=== PATIENT | male | born 1935 | race Caucasian/White ===

== ENCOUNTER → 2017-02-24 | Outpatient (CLI) | payer OTHER ==
[~2017-02-24] MED LIST: ACETAMINOPHEN325 M1 PO; ALDACTONE25 MG PO; ALEVE220 M1 PO; AREDS EYE VITAMIN; ASA5UEC PO; ATORVASTATIN CA40 MG PO; CALCITRATE200 MG PO; CALCIUM 500 +1 EAC5 PO; CARVEDILOL6.25 MG PO; COREG6.25 MG PO; CRESTOR10 MG PO; CRESTOR5 MG; FISH OIL 1,0001 EAC5 PO; HYDROCHLOROTHIA25 M1 PO; INSPRA25 MG PO; IRON PO; KEFLEX250 MG PO; LISINOPRIL10 MG PO; MULTI VITAMIN1 EACH PO; OMEPRAZOLE20 M2 PO; OXYCODONE HCL 55 MG PO; PACERONE 200 M200 M1 PO; PRESERVISION T1 EACH PO; PRILOSEC40 MG PO; SAVAYSA60 MG PO; ULTRAM 50MG TAB50 MG PO; VITAMIN B125000 MCG PO; VITAMINC500 PO
== END ==
LOC: RAD 10:25
DX: I48.91 Unspecified atrial fibrillation (principal)

== ENCOUNTER 2017-10-06 11:47 | Inpatient (IN) | payer OTHER ==
[~2017-10-06] VITALS: Ht 177.8 cm; Wt 89.6 kg
--- NOTE | ~2017-10-06 | HC ---
[facility] [place] [address] CONSULTATION Name: SNEHAL ABDI Room #: 210-P [facility] IN M.R.#: [id number] Admission: 10/06/17 Attend Phys: Chio Snow Discharge: 10/09/17 Date of : 37 Report #: [id number] THIS REPORT FOR: //name// CC: Grady Mendiola DATE OF SERVICE: 10/07/2017 HISTORY OF PRESENT ILLNESS: An 82-year-old white male who was admitted with slurred speech, some decreased memory and decreased balance, trouble walking. He also had an elevated troponin. He was diagnosed with a non-ST elevation [place] with ischemic cardiomyopathy and coronary artery disease. He was seen by Neurology. Noted to have ataxia. MRI is unable to be performed. Carotid Dopplers are pending and there is consideration for a CTA depending upon how he does in therapies. We are seeing him in Rehabilitation Medicine consultation. PAST MEDICAL HISTORY: Includes history of an ICD implant, paroxysmal atrial fibrillation, colon cancer, prostate CA, hypertension. There is a report of a closed head injury in the past. MEDICATIONS: Please see the full medication listing. FAMILY HISTORY: Noncontributory. ALLERGIES: None. SOCIAL HISTORY: Lives in a house, one and half story with his . She is disabled and she herself utilizes either a crutch or a powered wheelchair. They do have a van with a lift for her and he is on nasal prong O2 as well. As far as the patient goes. He typically would just utilize a cane, although the last week or so, he has had more and more gait and balance problems even with the cane. REVIEW OF SYSTEMS: Did not offer any current complaints of chest pain, shortness of breath, abdominal discomfort. Has concerns regarding his gait and functional mobility and ADLs. He thinks his speech is overall better. No focal pain complaints were noted. PHYSICAL EXAMINATION: GENERAL: An 82-year-old bearded white male in no obvious distress. VITAL SIGNS: Last recorded temperature 98.2, pulse 60, respirations 17, blood pressure 118/55. NEUROLOGIC: He is alert, pleasant, oriented, appears to verbalize reasonably well. Defer some answers to his , but can describe his house in detail. EOMs appeared to be full. There is no obvious slurring. Facies were symmetric. He has functional range of motion of both upper and lower extremity. Strength is grade 4+ to 4/5 both upper extremities 4+ to 4/5 both [place] [address] CONSULTATION Name: SNEHAL ABDI Room #: [facility] IN [facility].#: [id number] Admission: 10/06/17 Attend Phys: Chio Snow Discharge: 10/09/17 Date of : 36 Report #: [id number] does appear to have some problems with mlfi-tu-luhi bilaterally. ASSESSMENT: An 82-year-old white male with the following problem list: 1. Gait instability with noted ataxia. Neurology is involved with workup underway. Carotid Doppler pending. Consideration for CTA. Unable to undergo MRI. 2. Functional mobility and ADL deficits. 3. Slurred speech. Appears improved. 4. Elevated troponin with non-ST elevation myocardial infarction. 5. History of ischemic cardiomyopathy. 6. Coronary artery disease. 7. Paroxysmal atrial fibrillation. 8. Implanted cardiac defibrillator. 9. History of colon cancer. 10. Prostate cancer. PLAN: Neuro workup is underway. Therapy evaluations are also underway. We will be glad to follow along with you regarding his rehab therapy needs as he further medically stabilizes. Thank you for asking us to assist in this patient's care. <ELECTRONICALLY SIGNED> By: Angel Serra MD 10/17/17 1408 1207 02 Angel Serra MD /PMT
--- NOTE | ~2017-10-06 | EKG ---
[place] [address] [facility] [place] [address] ELECTROCARDIOGRAM REPORT Name: MARIAELENA ABDIY Chio Room #: 350-P ADM IN M.R.#: [id number] Admission: 10/06/17 Attend Phys: Chio Snow Discharge: Date of : 36 Report #: [id number] THIS REPORT FOR: //name// [facility] ED Test Date: 2017-10-06 Test Time: 12:37:04 Pat Name: SNEHAL ABDI Department: Room: 350 Gender: M Brush Stainer: FRANKO : 1935 Requested By: Jet Wilson Order Number: [id number] MD: Bryce Clemente Measurements Intervals Dodson Rate: 61 P: -3 MS: 260 QRS: -47 QRSD: 177 T: 130 QT: 463 QTc: 467 Interpretive Statements Atrial-sensed ventricular-paced rhythm No further analysis attempted due to paced rhythm Compared to ECG 05/23/2013 06:39:19 Ventricular pacing is now present Electronically Signed On 10-07-2017 7:36:38 CDT by Bryce Clemente [email or web address] <ELECTRONICALLY SIGNED> By: Bryce Clemente MD, [facility] 10/07/17 0736 1237 1237 Bryce Clemente MD, [facility] /EPI
--- NOTE | ~2017-10-06 | CATHLAB ---
[facility] [place] [address] INVASIVE PROCEDURE REPORT Name: SNEHAL ABDI Room #: 210-P [facility] IN [facility]#: [id number] Admission: 10/06/17 Attend Phys: Grady Waller Discharge: Date of : 36 Date of Service: 10/08/17 1148 Report #: [id number] THIS REPORT FOR: //name// APPROVED REPORT Study performed: 10/08/2017 07:37:09 Patient Details Patient Status: In-Patient Room #: The patient is a 82 year-old male Event Personnel Mat Morales Elastic Cutter, Jonatan Rosenbaum RN, Angel Viera Monitor Procedures Performed Left Heart Cath Coronaries, Bypass Grafts [id number] LHCCORCABG PTCA Single Vessel OM [id number] PCISINGLE Indication Non-STEMI , Dyspnea, Atypical chest pain Risk Factors Cerebrovascular Disease, Hypercholesterolemia, Coronary Artery DiseaseHypertension Previous Procedures/Diagnoses Previous CABG Procedure Narrative The Right Groin^ was infiltrated with 1% Lidocaine subcutaneous anesthesia. A PINNACLE 6FR Sheath #[id number] sheath was inserted into the RFA^. Coronary angiography was performed using coronary diagnostic catheters. The right coronary system was accessed and visualized with a JR4 catheter. The left coronary system was accessed and visualized with a JL5 catheter. The left ventricle was accessed and visualized with a PIGTAIL catheter. Left ventricular/Aortic Valve gradient assessed . The patient tolerated the procedure well and there were no complications associated with the procedure. Intraoperative Conscious Sedation Sedation start time: 8.17 Case end Time: 9.27 Fentanyl 25 mcg Versed 1.5 mg [facility] [address] [place] [address] INVASIVE PROCEDURE REPORT Name: TRINIDADSNEHAL M Room #: 210-P [facility] IN [facility]#: [id number] Admission: 10/06/17 Attend Phys: Grady Waller Discharge: Date of : 36 Date of Service: 10/08/17 1148 Report #: [id number] Fluoro Time: 30.31 minutes Dose: 4401 mGy Contrast Type and Amount: Omnipaque 230 ml Coronary Angiography The patient's coronary anatomy is right dominant. [place] Artery Percent Stenosis Left Main: 40 % Prox LAD: 100 % Mid/Distal LAD: % Circumflex: % RCA: 100 % Ramus: % Diagnostic Cath LAD There is a patent REDDY graft with an end-to-side anastomosis to the mid LAD. The septal perforators supply collateral filling of the PDA. Diagonal 1 Occluded at the ostium, partially filled via collateral circulation. Circumflex Patent vessel, supplies 2 obtuse marginal arteries- OM1 is larger of the two. The saphenous vein graft to OM1 is totally occluded at the proximal segment. OM1 There is a severe stenosis in the proximal segment, at least 90% with calcifications, at the bifurcation of 2 branches. OM2 Small-caliber vessel, with no flow-limiting lesions. Right Coronary The saphenous vein graft to the PDA is totally occluded. R PDA Filled via collateral circulation from septal perforators. Left Ventriculography Left Ventriculography was not performed. Ejection Fraction was 30-35% based off patient's Echocardiogram. An LVEDP was measured and there is no gradient across the outflow tract. Hemodynamics The aortic pressure is 112/55 mmHg with a mean of 75 mmHg. The left ventricular pressure is 127/15 mmHg with a mean of mmHg. The left ventricular end diastolic pressure is 18 mmHg. PCI Technique Lesion Anticoagulation was achieved with Angiomax. Patient was preloaded with Plavix. Percutaneous coronary intervention was performed on the first obtuse marginal branch segment. The lesion stenosis prior to intervention was 95% with LAKEISHA 3 flow. A LAUNCHER 6FR EBU 4 #[id number] Guide Catheter was used to engage the LCA ostium. A Luge Wire .014 x 182CM #[id number] Interventional Guidewire was used to cross the [facility] [address] [place] [address] INVASIVE PROCEDURE REPORT Name: SNEHAL ABDI Room #: 210-P [facility] IN M.R.#: [id number] Admission: 10/06/17 Attend Phys: Grady Waller Discharge: Date of : 36 Date of Service: 10/08/17 1148 Report #: [id number] lesion. BALLOON DILATION A Balloon catheter Sprinter OTW 2.0 x 10 #[id number] was inserted and inflated up to 14.00atm for 29seconds. The OM1 artery is a tortuous vessel with calcifications. At the site of the stenosis, I was able to pass 2 wires for support. A 2.0 mm and 1.5 mm balloon was partially passed into the stenotic area and inflated up to 14 rui. The lesion was not able to be dilated, probably from the calcification. The patient remained hemodynamically stable with no symptoms of chest pain. Final injections revealed LAKEISHA-3 blood flow. Final angiography reveals 90 % stenosis with LAKEISHA 3 flow. Conclusion 1. Patent REDDY graft to the LAD. 2. Occluded SVG to OM1. 3. Occluded SVG to PDA. 4. Collateral filling of the PDA from septal perforators. 5. Failed angioplasty of the proximal stenosis in OM1, due to inability to dilate the lesion with a balloon due to calcifications. 6. Recommend medical therapy. <ELECTRONICALLY SIGNED> By: Mat Morales MD 10/08/17 1148 1148 1148 Mat Morales MD /INF
--- NOTE | ~2017-10-06 | 2DMMODE ---
[facility] [address] [place] [address] 2 D/M-MODE ECHOCARDIOGRAM Name: SNEHAL ABDI Room #: 350-P ADM IN .R.#: [id number] Admission: 10/06/17 Attend Phys: Grady Waller Discharge: Date of : 37 Date of Service: 10/07/17 0956 Report #: [id number] THIS REPORT FOR: //name// APPROVED REPORT Study performed: 10/07/2017 09:05:19 EXAM: Comprehensive 2D, Doppler, and color-flow Echocardiogram Patient Location: Echo lab Room #: 350 Status: routine BSA: 2.09 HR: 60 bpm BP: 120/69 mmHg Rhythm: Paced, irregular Other Information Study Quality: Adequate Indications NSTEMI, ICM, ICD. HX: CABG 2D Dimensions RVDd: 45.19 mm LVEF(%): 35.65 (>50%) IVSd: 14.87 (7-11mm) LVOT Diam: 24.06 (18-24mm) LVDd: 53.99 mm PWd: 10.39 (7-11mm) Ascending Ao: 42.84 (22-36mm) LVDs: 44.68 (25-40mm) Aortic Root: 42.66 mm Magdaleno's LVEF: 35.65 % Volumes Left Atrial Volume (Systole) Single Plane 4CH: 81.61 mL Single Plane 2CH: 93.80 mL LA ESV Index: 45.00 mL/m2 Aortic Valve AoV Peak Scotty.: 1.27 m/s AO Peak Gr.: 6.46 mmHg LVOT Max P.24 mmHg LVOT Max V: 0.75 m/s MICHELLE Vmax: 2.67 cm2 Mitral Valve E/A Ratio: 0.9 MV Decel. Time: 217.25 ms [facility] [place] [address] 2 D/M-MODE ECHOCARDIOGRAM Name: SNEHAL ABDI Room #: 350-P [facility] IN M.R.#: [id number] Admission: 10/06/17 Attend Phys: Grady Waller Discharge: Date of : 36 Date of Service: 10/07/17 0956 Report #: [id number] MV E Max Scotty.: 0.51 m/s MV A Scotty.: 0.57 m/s MV PHT: 63.00 ms Pulmonary Valve PV Peak Scotty.: 0.95 m/s PV Peak Gr.: 3.62 mmHg Tricuspid Valve TR Peak Scotty.: 2.71 m/s TR Peak Gr.: 29.42 mmHg Left Ventricle The left ventricle is normal size. Moderate basal septal hypertrophy is present. Left ventricular systolic function is moderately decreased. LVEF is 35%. Mild diastolic dysfunction is present (impaired relaxation pattern). Right Ventricle Right ventricle is at the upper limits of normal. The right ventricular systolic function is normal. Device lead is present in the right ventricle. Atria Left atrium is moderately dilated. Right atrium is at the upper limits of normal. Aortic Valve The Aortic valve is sclerotic. Mild aortic regurgitation. There is no aortic valvular stenosis. Mitral Valve Mitral valve leaflets are mildly thickened. Moderate mitral regurgitation. Tricuspid Valve The tricuspid valve is normal in structure. Mild to moderate tricuspid regurgitation. Estimated PAP is 30mmHg plus the right atrial pressure. Pulmonic Valve The pulmonary valve is normal in structure. Mild to moderate pulmonic regurgitation. Great Vessels Aortic root is dilated at 4.3cm. Ascending aorta is dilated at 4.3cm. IVC is not well visualized. [facility] [address] [place] [address] 2 D/M-MODE ECHOCARDIOGRAM Name: SNEHAL ABDI Room #: 350-P [facility] IN ..#: [id number] Admission: 10/06/17 Attend Phys: Grady Waller Discharge: Date of : 37 Date of Service: 10/07/17 0956 Report #: [id number] Pericardium There is no pericardial effusion. <Conclusion> The left ventricle is normal size. Left ventricular systolic function is moderately decreased. LVEF is 35%. Mild diastolic dysfunction is present (impaired relaxation pattern). Left atrium is moderately dilated. Mild aortic regurgitation. Moderate mitral regurgitation. Mild to moderate tricuspid regurgitation. Estimated PAP is 30mmHg plus the right atrial pressure. <ELECTRONICALLY SIGNED> By: Mat Morales MD 10/07/1756 5 5 Mat Morales MD /INF
--- NOTE | ~2017-10-06 | D ---
[facility] [place] [address] [place] [address] DISCHARGE SUMMARY Name: SNEHAL ABDI Room #: 210-P DIS IN M.R.#: [id number] Admission: 10/06/17 Attend Phys: Chio Snow Discharge: 10/09/17 Date of : 36 Report #: [id number] THIS REPORT FOR: //name// CC: Grady Mendiola DATE OF SERVICE: 10/09/2017 FINAL DIAGNOSES: 1. Non-ST elevation myocardial infarction. 2. Coronary artery disease. HOSPITAL COURSE: The patient was admitted from home with weakness and slurred speech. He was diagnosed with NSTEMI based on lab and EKG data. CT of the head was unremarkable. He was not a candidate for MRI due to pacemaker implant. Neurology Service followed him and felt his underlying cerebrovascular disease was exacerbated by the acute medical process. He underwent cardiac catheterization, but no lesions were amenable to invasive treatment. Please see Dr. Morales's separately dictated report. The plan was for medical management. With supportive measures and therapy, his strength and balance improved. He was walking 250 feet, which is contact guard assistance. He was independent with transfers. His speech cleared as well. DISPOSITION: To be discharged to home with home health. Diet and activity as tolerated. Follow up with Dr. Mendiola and Dr. Morales in 1-2 weeks. Resume all home medications. <ELECTRONICALLY SIGNED> By: Angel Hummel MD 10/10/17 0851 0912 0942 Angel Hummel MD /leonora
--- NOTE | ~2017-10-06 | HC ---
[facility] [place] [address] CONSULTATION Name: SNEHLA ABDI Room #: 210-P [facility] IN M.R.#: [id number] Admission: 10/06/17 Attend Phys: Chio Snow Discharge: 10/09/17 Date of : 36 Report #: [id number] THIS REPORT FOR: //name// CC: Grady Mendiola DATE OF SERVICE: 10/06/2017 HISTORY OF PRESENT ILLNESS: This is an 82-year-old male patient who was evaluated because he indicates he was having some ambulation difficulty. This started 2-3 days ago. It started spontaneously without any trauma. He does not appear to be that much weak, but he has difficulty with ambulation and he believes a lot of it is because of incoordination. REVIEW OF SYSTEMS: Indicates that he recently had a carpal tunnel syndrome surgery on the left side. He was on Eliquis, but Eliquis was held. He is not completely sure for how long it was held. He does have a pacemaker. He does not know if it is compatible with MRI or not. He does have a history of ischemic cardiomyopathy and he is being seen by Cardiology in that regard. He does indicate he had a stroke in the past. He indicated it mostly affected the left lower extremity, that was in late , but he has been able to function reasonably well since then. He denies any new eye, ENT, respiratory, GI, , musculoskeletal, constitutional, dermatological, hematological, psychiatric, throat, allergic, endocrine symptom associated with present symptomatologies, which are new. PAST MEDICAL HISTORY: Positive for stroke. FAMILY HISTORY: Negative for early age stroke. SOCIAL HISTORY: The patient apparently has a supportive family. He does not drink any alcohol or smoke. PHYSICAL EXAMINATION: Indicates the patient is alert, responsive, able to follow simple and complex command. His speech, concentration, fund of knowledge and memory is at his baseline. Cranial nerve examination 2-12 looks mostly unremarkable. The patient has reasonably good strength in all 4 extremities. His reflexes, sensation and tone is symmetrical. He can do reasonably well with heqhkf-ad-bfgf, but I did not make him walk. I could not have a very good look at the patient's fundus. He is a very well-built individual who does not have any dysmorphic features of eyes, ears and face. His vision and hearing looks adequate. His pulses are palpable. He has no edema, cyanosis or jaundice. Heart looks irregular, but the patient has a history of atrial fibrillation. Blood pressure is 123/69, respirations 18, pulse is 60, temperature is 97.8. [address] [address] CONSULTATION Name: SNEHAL ABDI Room #: [address] [place] [address] IN M.R.#: [id number] Admission: 10/06/17 Attend Phys: Chio Snow Discharge: 10/09/17 Date of : 36 Report #: [id number] LABORATORY DATA: Indicates a hemoglobin of 11.1 and sodium of 137. His troponin is elevated and he is being followed by cardiology in that regard. He did have a CT scan of the head done, which does not appear to be showing any acute abnormality. He does have a history of prior encephalomalacia. All those changes are chronic. IMPRESSION: 1. Ambulation difficulty in a patient who had previous insults to the brain. It is possible that insult got aggravated with some systemic conditions including myocardial infarction. We need to just evaluate him. Evaluation is going to be difficult. He has a pacemaker, so we cannot do an MRI. He already had a CT scan and I think we should start with a carotid Doppler. Depending upon that, we may need further workup. He is on anticoagulation from a cardiology perspective and therefore, it is unlikely things will change much . RECOMMENDATIONS: 1. Carotid Doppler. 2. Get him evaluated by physical therapy. 3. Depending upon the carotid Doppler, we may consider a spine workup or even CT angiogram. I discussed all of it with the patient in detail and he wants to follow this plan and we will do that. Thank you very much for this referral. <ELECTRONICALLY SIGNED> By: Grant Munson MD 10/09/17 1355 1750 56 Grant Munson MD /nt
--- NOTE | ~2017-10-06 | H ---
[facility] [place] [address] HISTORY AND PHYSICAL Name: SNEHAL ABDI Room #: 350-P ADM IN M.R.#: [id number] Admission: 10/06/17 Attend Phys: Chio Snow Discharge: Date of : 36 Report #: [id number] THIS REPORT FOR: //name// CC: Grady Mendiola DATE OF SERVICE: 10/06/2017 CHIEF COMPLAINT: Trouble walking and speaking. HISTORY OF PRESENT ILLNESS: The patient is an 82-year-old gentleman who came to the Emergency Room with about a 3-day history of slurred speech and difficulty walking. He had put off coming to seek medical attention for a number of days, but his insisted because he was not getting better. He normally walks with a cane, but felt that his balance has been off, more so over the last 3 days. His said he has had difficulty remembering things for the last 3 days. Prior to these symptoms, he had carpal tunnel surgery on the left wrist 4 days ago and was taken off his aspirin for 5 days and Eliquis for 3 days prior to surgery. He does have a history of atrial fibrillation. PAST MEDICAL HISTORY: Coronary artery disease with bypass; colon cancer, surgically treated; atrial fibrillation; hypertension. PAST SURGICAL HISTORY: He has had a pacemaker implant. There is report of a closed head injury in the past. FAMILY HISTORY: Noncontributory. SOCIAL HISTORY: , lives with his . No chronic alcohol or tobacco use. ALLERGIES: None. MEDICATIONS: Omeprazole, aspirin, lisinopril, calcium, Coreg, Aldactone, Lipitor, multivitamin, vitamin C. REVIEW OF SYSTEMS: He denies headache, chest pain, shortness of breath, abdominal pain, nausea, vomiting, diarrhea, constipation, dysuria, syncope. OBJECTIVE: VITAL SIGNS: Temperature 36.4, pulse 50, respirations 16, blood pressure 120/69. GENERAL: He is awake and alert, in no distress. HEAD AND NECK: Unremarkable. LUNGS: Clear. HEART: Regular. ABDOMEN: Soft, normoactive bowel sounds. [facility] [address] [place] [address] HISTORY AND PHYSICAL Name: SNEHAL ABDI Room #: 350-P [facility] IN ..#: [id number] Admission: 10/06/17 Attend Phys: Chio Snow Discharge: Date of : 36 Report #: [id number] EXTREMITIES: No edema. NEUROLOGIC: His speech is clear. He has facial symmetry, seems to recognize me from the office, says his balance is still poor. Global strength seems intact and equal bilaterally. LABORATORY REVIEW: The pertinent findings include elevated troponin. ASSESSMENT: 1. Non-ST segment elevation myocardial infarction. 2. Ischemic cardiomyopathy. 3. Coronary artery disease. 4. Ataxia. 5. Dysarthria. 6. Hypertension. 7. Cerebrovascular disease. 8. Recent carpal tunnel surgery on the left. PLAN: Symptoms may just be related to the acute myocardial infarction. Initial CT of the brain was unremarkable, will be difficult to image further due to his pacemaker implant. Both Cardiology and Neurology were on the case. Therapies have been ordered as well as may just be medical management at this point. <ELECTRONICALLY SIGNED> By: Angel Hummel MD 10/07/17 1213 1032 1048 Angel Hummel MD /nt
[2017-10-06 12:24] VITALS: BP 126/94
[2017-10-06 12:50] LABS: HEMATOCRIT 31.6 % (42.0-52.0); HEMOGLOBIN 11.1 gm/dL (14.0-18.0); MCH 34.9 pg (26.0-34.0); MCHC 35.2 g/dL (28.0-37.0); MCV 99.2 fL (80.0-100.0); PLATELET COUNT 123 thou/uL (150-400); RBC 3.18 mil/uL (4.50-6.00); WBC 3.3 thou/uL (4.0-11.0)
[2017-10-06 13:00] LABS: URINE BILIRUBIN NEGATIVE (Negative); URINE BLOOD NEGATIVE (Negative); URINE CLARITY CLEAR; URINE COLOR YELLOW; URINE GLUCOSE-RANDOM* NEGATIVE (Negative); URINE KETONES NEGATIVE (Negative); URINE LEUKOCYTES-REFLEX NEGATIVE (Negative); URINE NITRITE-REFLEX NEGATIVE (Negative); URINE PROTEIN (DIPSTICK) NEGATIVE (Negative); URINE UROBILINOGEN 0.2 E.U./dl (0.2-1.0)
[2017-10-06 13:00] LABS: CALCIUM 9.1 mg/dL (8.5-10.1)
[2017-10-06] MEDS ORDERED: VITAMINC500 PO (13:02)
[2017-10-06] MEDS ORDERED: UNICOMPLEX M TA1 TA1 PO (13:02)
[2017-10-06 13:06] LABS: APTT 26.4 Seconds (24.5-32.8); INR 1.1; PROTIME 11.3 Seconds (9.3-11.4)
[2017-10-06 13:08] LABS: AMP/METHAMP Negative (Negative); BARBITURATES Negative (Negative); BENZODIAZEPINES Negative (Negative); COCAINE Negative (Negative); METHADONE Negative (Negative); OPIATES Negative (Negative); PCP Negative (Negative)
[2017-10-06 13:09] LABS: ALBUMIN 3.4 g/dL (3.4-5.0); MAGNESIUM 1.7 mg/dL (1.8-2.4); TOTAL BILIRUBIN 1.4 mg/dL (<0.1-1.0); TOTAL PROTEIN 6.3 g/dL (6.4-8.2)
[2017-10-06 13:11] LABS: ABSOLUTE NEUTROPHILS 1.5 thou/uL (1.4-8.2); ANISOCYTOSIS 1+; LARGE PLATELETS FEW; PLATELET ESTIMATE NORMAL
[2017-10-06 13:13] LABS: TROPONIN-I 3.39 ng/mL (<0.06)
[2017-10-06 14:29] VITALS: BP 116/59
[2017-10-06 16:29] VITALS: BP 123/69
[2017-10-06 19:35] VITALS: BP 107/62
[2017-10-06 23:30] VITALS: BP 116/65
[2017-10-07 03:15] VITALS: BP 100/57
[2017-10-07 06:16] LABS: CALCIUM 9.1 mg/dL (8.5-10.1); CREATININE 0.9 mg/dL (0.7-1.3); POTASSIUM 4.7 mmol/L (3.5-5.1)
[2017-10-07 06:43] LABS: TROPONIN-I 2.79 ng/mL (<0.06)
[2017-10-07 07:35] VITALS: BP 120/69
[2017-10-07 10:45] VITALS: BP 118/55
[2017-10-07 16:48] VITALS: BP 111/57
[2017-10-07 19:25] VITALS: BP 118/63
[2017-10-08 04:00] VITALS: BP 108/51
[2017-10-08 06:54] LABS: HEMATOCRIT 28.9 % (42.0-52.0); HEMOGLOBIN 10.3 gm/dL (14.0-18.0); MCHC 35.6 g/dL (28.0-37.0); MCV 98.1 fL (80.0-100.0); RBC 2.94 mil/uL (4.50-6.00); RDW 18.1 % (10.5-14.5); WBC 3.6 thou/uL (4.0-11.0)
[2017-10-08 07:24] LABS: CALCIUM 8.6 mg/dL (8.5-10.1); POTASSIUM 4.4 mmol/L (3.5-5.1)
[2017-10-08 07:49] VITALS: BP 131/72
[2017-10-08 15:10] VITALS: BP 121/59
[2017-10-08 19:45] VITALS: BP 111/61
[2017-10-09 03:38] LABS: CALCIUM 8.3 mg/dL (8.5-10.1); CREATININE 0.9 mg/dL (0.7-1.3); POTASSIUM 4.2 mmol/L (3.5-5.1)
[2017-10-09 03:39] LABS: HEMOGLOBIN 9.8 gm/dL (14.0-18.0); MCH 34.7 pg (26.0-34.0); MCHC 35.2 g/dL (28.0-37.0); MCV 98.6 fL (80.0-100.0); RBC 2.84 mil/uL (4.50-6.00); RDW 17.9 % (10.5-14.5); WBC 3.8 thou/uL (4.0-11.0)
[2017-10-09 04:17] VITALS: BP 103/53
[2017-10-09 07:35] VITALS: BP 112/63
[2017-10-09] MEDS ORDERED: ELIQUIS5 MG PO (09:07)
[2017-10-09 10:25] VITALS: BP 112/63
[2017-10-09 10:46] VITALS: BP 112/63
[2017-10-09 10:51] VITALS: BP 112/63
== END 2017-10-09 12:30 | disposition home health service (06) | DRG 250 ==
LOC: ER 11:47 → 3W 13:58 → EROBS 13:58 → 3W 14:40 → 2N 10-08 10:29 → ENTRNSPT 10-09 11:57 → EDTRNSPTSTS 10-09 12:00 → 2N 10-09 12:30
PROVIDERS: Emergency Medicine; Internal Medicine Cardiovascular Disease; Internal Medicine Geriatric Medicine
PROC: B2131ZZ Fluoroscopy of Multiple Coronary Artery Bypass Grafts using Low Osmolar Contrast (ICD-10-PCS; principal; 2017-10-08)
PROC: B2111ZZ Fluoroscopy of Multiple Coronary Arteries using Low Osmolar Contrast (ICD-10-PCS; principal; 2017-10-08)
PROC: 02703ZZ Dilation of Coronary Artery, One Artery, Percutaneous Approach (ICD-10-PCS; principal; 2017-10-08)
PROC: 4A023N7 Measurement of Cardiac Sampling and Pressure, Left Heart, Percutaneous Approach (ICD-10-PCS; principal; 2017-10-08)
DX: I21.4 Non-ST elevation (NSTEMI) myocardial infarction (principal); I50.21 Acute systolic (congestive) heart failure; D61.818 Other pancytopenia; I44.2 Atrioventricular block, complete; I48.0 Paroxysmal atrial fibrillation; I25.5 Ischemic cardiomyopathy; I25.10 Atherosclerotic heart disease of native coronary artery without angina pectoris; R27.0 Ataxia, unspecified; E78.5 Hyperlipidemia, unspecified; Z90.49 Acquired absence of other specified parts of digestive tract; Z86.73 Personal history of transient ischemic attack (TIA), and cerebral infarction without residual deficits; Z85.038 Personal history of other malignant neoplasm of large intestine; Z95.0 Presence of cardiac pacemaker; Z85.46 Personal history of malignant neoplasm of prostate; Z95.1 Presence of aortocoronary bypass graft; Z79.82 Long term (current) use of aspirin; Z79.899 Other long term (current) drug therapy; I11.0 Hypertensive heart disease with heart failure
CPT/HCPCS: 10081; 10779

== ENCOUNTER 2018-07-06 20:32 | Inpatient (IN) | payer OTHER ==
[~2018-07-06] VITALS: Ht 177.8 cm; Wt 81.3 kg
--- NOTE | ~2018-07-06 | H ---
[facility] [place] [address] HISTORY AND PHYSICAL Name: SNEHAL BADI Room #: 358-P ADM IN M.R.#: [id number] Admission: 07/06/18 Attend Phys: Chio Snow Discharge: Date of : 36 Report #: [id number] THIS REPORT FOR: //name// CC: Grady Leonard DATE OF SERVICE: 07/07/2018 HISTORY OF PRESENT ILLNESS: This is an 82-year-old male well known to my service with generalized weakness. This is a patient over the last few days, he has had increasing weakness and shortness of breath, dyspnea on exertion with a previous history of gastrointestinal bleeding. He denies any visual evidence of bleeding or complaints regarding ischemic heart disease or TIA. PAST MEDICAL HISTORY: Noteworthy for previous pacemaker implantation. He has history of atrial fibrillation, ischemic heart disease, status post bypass, remote history of colon cancer, history of hypertension, apparently he had carpal tunnel surgery back in September. MEDICATIONS: Include apixaban, omeprazole, aspirin, carvedilol, lisinopril, Lasix, spironolactone, atorvastatin, multivitamin, and amiodarone. ALLERGIES: No known allergies. FAMILY HISTORY: Noncontributory. SOCIAL HISTORY: He does not smoke or drink. REVIEW OF SYSTEMS: Twelve-point otherwise negative. PHYSICAL EXAMINATION: GENERAL: Shows him to be pale in appearance, but in no distress. He is awake, alert and oriented. HEENT: Otherwise, negative. NECK: Supple without thyromegaly or adenopathy. CHEST: Clear. CARDIOVASCULAR: Showed a regular rate and rhythm without murmur. ABDOMEN: Soft and nontender without hepatosplenomegaly. EXTREMITIES: Showed no cyanosis, clubbing or edema. NEUROLOGIC: Showed nothing focal at this time. LABORATORY PARAMETERS: EKG was paced. Labs showed a creatinine of 1.4, hemoglobin of 9.1 with an MCV of 100, total bilirubin of 1.6. ASSESSMENT: This is a patient with generalized weakness that appears to be on the basis of anemia and probable GI bleed. I think this is probably is [facility] [address] [place] [address] HISTORY AND PHYSICAL Name: SNEHAL ABDI Chio Room #: 358-P [facility] IN [facility]#: [id number] Admission: 07/06/18 Attend Phys: Chio Snow Discharge: Date of : 36 Report #: [id number] angiodysplasia of the bowel. He has had previous workups, which have been negative and at this point because of Eliquis use probably he has a slow GI bleed. We will be holding all of his anticoagulation. PLAN: Serial hemoglobins and transfuse if necessary. By: 0930 [id number] Grady Mendiola MD /nt
[~2018-07-06 20:32] MED LIST changes: +ELIQUIS5 MG PO; +UNICOMPLEX M TA1 TA1 PO
[2018-07-06 20:35] VITALS: BP 115/69
[2018-07-06] MEDS ORDERED: PACERONE100 MG PO (20:49)
[2018-07-06 20:53] LABS: ABSOLUTE NEUTROPHILS 3.3 thou/uL (1.4-8.2); BASOPHILS 0.4 % (0.0-2.0); EOSINOPHILS 0.6 % (0.0-3.0); HEMATOCRIT 27.2 % (42.0-52.0); HEMOGLOBIN 9.1 gm/dL (14.0-18.0); LYMPHOCYTES 15.6 % (24.0-44.0); MCH 33.8 pg (26.0-34.0); MCHC 33.5 g/dL (28.0-37.0); MCV 100.8 fL (80.0-100.0); MONOCYTES 10.1 % (1.0-8.0); PLATELET COUNT 123 thou/uL (150-400); POLYS 73.3 % (36.0-66.0); RDW 19.4 % (10.5-14.5); WBC 4.6 thou/uL (4.0-11.0)
[2018-07-06 21:01] LABS: ANION GAP 14 mmol/L (7-16); BUN 31 mg/dL (7-18); CALCIUM 8.9 mg/dL (8.5-10.1); CHLORIDE 107 mmol/L (98-107); CO2 19 mmol/L (21-32); CREATININE 1.4 mg/dL (0.7-1.3); GLUCOSE 107 mg/dL (74-106); POTASSIUM 4.2 mmol/L (3.5-5.1); SODIUM 140 mmol/L (136-145)
[2018-07-06 21:14] LABS: APTT 31.6 Seconds (24.5-32.8); INR 1.3; PROTIME 13.9 Seconds (9.3-11.4)
[2018-07-06 21:16] LABS: ALBUMIN 3.5 g/dL (3.4-5.0); SGOT 18 U/L (15-37); SGPT 17 U/L (30-65); TOTAL BILIRUBIN 1.6 mg/dL (<0.1-1.0); TOTAL PROTEIN 6.3 g/dL (6.4-8.2); TROPONIN-I <0.06 ng/mL (<0.06)
[2018-07-06 23:48] LABS: URINE BILIRUBIN NEGATIVE (Negative); URINE BLOOD NEGATIVE (Negative); URINE CLARITY CLEAR; URINE COLOR YELLOW; URINE GLUCOSE-RANDOM* NEGATIVE (Negative); URINE KETONES NEGATIVE (Negative); URINE LEUKOCYTES-REFLEX NEGATIVE (Negative); URINE NITRITE-REFLEX NEGATIVE (Negative); URINE PROTEIN (DIPSTICK) TRACE (Negative); URINE SPECIFIC GRAVITY >= 1.030 (1.005-1.035); URINE UROBILINOGEN 0.2 E.U./dl (0.2-1.0)
[2018-07-07] VITALS (8 sets, daily range): BP systolic 100–116; BP diastolic 59–76
[2018-07-07] MEDS ORDERED: IRON325 PO (01:43)
[2018-07-07] MEDS ORDERED: CALCIUM CITRAT200 MG PO (01:48)
--- NOTE | 2018-07-07 07:24 | NUR ---
KEEPING PT BEDREST UNTIL PT CAN ASSES PT DUE TO WEAKNESS ASSOCIATED WITH GI BLEED. PT ARRIVED VIA ER AT 0200 AND HAS A LONG HISTORY OF VISITS TO [facility]. PT USING URINAL BEDSIDE. I KEPT PT NPO UNTIL PHYSICAN ROUNDS AND MAKES A DETERMINATION. EDEMA IS VERY PRESENT IN BLLE WITH 3/4 PITTING. HOURLY ROUNDING.
--- NOTE | 2018-07-07 08:51 | EKG ---
[address] [place] [address] ELECTROCARDIOGRAM REPORT Name: SNEHAL ABDI Room #: 358-P ADM IN M.R.#: [id number] Admission: 07/06/18 Attend Phys: Chio Snow Discharge: Date of : 36 Report #: [id number] THIS REPORT FOR: //name// [facility] ED Test Date: 2018-07-06 Test Time: 20:35:42 Pat Name: SNEHAL ABDI Department: Room: [facility] Gender: M [employer]: CHANDAN : 1935 Requested By: Atiya Young Order Number: [id number] MD: Mat Morales Measurements Intervals Thornton Rate: 71 P: MO: QRS: -63 QRSD: 209 T: 128 QT: 491 QTc: 534 Interpretive Statements Atrial sensed and ventricular-paced rhythm No further analysis attempted due to paced rhythm Compared to ECG 10/06/2017 12:37:04 No significant change Electronically Signed On 07-07-2018 8:51:31 [employer] by Mat Morales [email or web address] <ELECTRONICALLY SIGNED> By: Mat Morales MD 07/07/18 0851 34 34 Mat Morales MD /KEYONNA
--- NOTE | 2018-07-07 10:56 | NUR ---
DID COMPLAIN OF ABDOMINAL PAIN THIS AM AND DR GUARDADO NOTIFIED IN PERSON. HE IS ALERT ORIENTED X3. RESTING IN BED AT THIS TIME. USES URINAL FOR URINE. WILL CONT WITH PLAN OF CARE.
[2018-07-07 11:46] LABS: HEMATOCRIT 26.2 % (42.0-52.0); HEMOGLOBIN 8.7 gm/dL (14.0-18.0)
--- NOTE | 2018-07-07 16:20 | NUR ---
RESTED IN BED MOST OF THE DAY. HE IS ALERT ORIENTED X4. HE DID COMPLAIN OF ABDOMINAL PAIN TO LOWER ABDOMEN BUT AFTER HAVIG A BM PAIN WAS RESOLVED. FAMILY HERE TO VISIT. WILL CONT WITH PLAN OF CARE.
[2018-07-08 00:44] VITALS: BP 113/76
[2018-07-08 03:26] VITALS: BP 102/69
[2018-07-08 07:48] VITALS: BP 113/67
--- NOTE | 2018-07-08 10:30 | NUR ---
PT WAS VERY SHORT OF AIR PRIOR TO TRANSFER TO EGD..HIS SAT WAS 99% RA..CALLED GI NURSE AND NOTIFIED HER OF SOA...WHILE DOWN IN GI LAB PATIENT BP DROPPED AND WAS PALE..HE WAS HALLUCINATING AND SOA...DR UPTON ORDERED DDIMER WHICH WAS ELEVATED AND ALSO CARDIO CONSULT, VQ SCAN AND US BLE...
[2018-07-08 11:20] LABS: HEMOGLOBIN 9.8 gm/dL (14.0-18.0); MCHC 33.8 g/dL (28.0-37.0); MCV 100.8 fL (80.0-100.0); RBC 2.88 mil/uL (4.50-6.00); RDW 19.8 % (10.5-14.5); WBC 4.7 thou/uL (4.0-11.0)
--- NOTE | 2018-07-08 11:52 | HC ---
[facility] [place] [address] CONSULTATION Name: SNEHAL ABDI Room #: 358-P [facility] IN ..#: [id number] Admission: 07/06/18 Attend Phys: Chio Snow Discharge: Date of : 36 Report #: [id number] THIS REPORT FOR: //name// CC: Grayson Leonard DATE OF SERVICE: 07/07/2018 HISTORY OF PRESENT ILLNESS: The patient is an 82-year-old male who was feeling weak in general. Hemoglobin on admission was 9.1 yesterday, today is 8.7. He was Hemoccult positive x 1. He denies any obvious bright red blood per rectum or melena. He does have a previous history of anemia as well as GI bleed. In the past, he has undergone a flexible sigmoidoscopy by myself as he has had most of his colon removed for history of colon cancer. This was performed in 2014 and some benign polyps were removed. He had an upper endoscopy by Dr. Crabtree in 2016 that was essentially negative and then an M2 capsule apparently showing some nonbleeding AVMs in the last few years. He denies any abdominal pain. He denies any chest pain or shortness of breath currently. No fevers or chills. His weight has been fairly stable. His appetite has been good. PAST MEDICAL HISTORY: History of anemia, previous history of GI bleed, small bowel AVM, previous colon cancer, status post resection; hypertension, pacemaker placement, atrial fibrillation, coronary artery disease with history of bypass. MEDICATIONS ON ADMISSION: Eliquis, aspirin, omeprazole 40 mg p.o. b.i.d., Coreg, Zestril, iron, calcium citrate, Aldactone, Lipitor, amiodarone. ALLERGIES: No known drug allergies. REVIEW OF SYSTEMS: As per HPI. SOCIAL HISTORY: Denies any tobacco or alcohol use. FAMILY HISTORY: Negative for colon cancer. PHYSICAL EXAMINATION: VITAL SIGNS: Temperature is 97.4, pulse 62, blood pressure 111/64, respiratory rate is 20. GENERAL: He is alert and oriented x 3, in no acute distress. HEENT: Sclerae nonicteric. Oropharynx clear. NECK: Supple, without lymphadenopathy. CARDIOVASCULAR: Regular rate and rhythm. CHEST: Clear to auscultation anteriorly bilaterally. ABDOMEN: Soft, nontender, nondistended, normoactive bowel sounds. EXTREMITIES: No cyanosis, clubbing or edema. [facility] [address] [place] [address] CONSULTATION Name: SNEHAL ABDI Room #: 358-P [facility] IN [facility]#: [id number] Admission: 07/06/18 Attend Phys: Chio Snow Discharge: Date of : 36 Report #: [id number] LABORATORY DATA: Sodium 140, potassium 4.2, chloride 107, bicarbonate 19, BUN 31, creatinine is 1.9, total bilirubin 1.4, alkaline phosphatase 66, ALT 17, albumin 3.5. Troponin less than 0.06. WBC is 4.6, hemoglobin 8.7, MCV 100.8, platelet count is 123. Stool Hemoccult positive x 1 yesterday. ASSESSMENT AND PLAN: Anemia with Hemoccult positive stools. The patient has had previous history of endoscopy as well as an M2 capsule, but these were 2-3 years ago. We would recommend proceeding with an upper endoscopy tomorrow for further evaluation as the patient is on aspirin and Eliquis. May need to consider repeating an M2 capsule, we will make further recommendations after endoscopy. In the meantime, continue to hold anticoagulation therapy, monitor hemoglobin and continue proton pump inhibitor therapy. Thank you for allowing me to participate in his care. <ELECTRONICALLY SIGNED> By: Darrin Manzo MD 07/08/18 1152 1413 1632 Darrin Manzo MD /nt
[2018-07-08 12:33] LABS: ALBUMIN 3.4 g/dL (3.4-5.0); CALCIUM 8.4 mg/dL (8.5-10.1); CREATININE 1.4 mg/dL (0.7-1.3); DIRECT BILIRUBIN 0.6 mg/dL (<0.1-0.3); TOTAL BILIRUBIN 1.8 mg/dL (<0.1-1.0); TOTAL PROTEIN 6.1 g/dL (6.4-8.2)
--- NOTE | 2018-07-08 14:29 | NUR ---
INITIAL ASSESSMENT: Received consult for discharge planning. SW reviewed chart. Pt was admitted from home due to GI bleed. Pt was scheduled to have EGD earlier today per GI. EGD cancelled. Cardiology and neurology consulted to evaluate pt prior to proceeding tiwh EGD. Per chart, pt lives at home with his . Prior to admission, pt was using a cane to assist with ambulation. Pt has used [facility] in the past for services and has been to [facility] SN[facility]. Pt's PCP is Dr. Grayson Mendiola. Pt is currently off the unit. SW is following to assist as needed with discharge planning.
[2018-07-08 18:13] VITALS: BP 93/50
--- NOTE | 2018-07-08 18:36 | NUR ---
PT MUCH MORE RELAXED THIS RODOLFO..LASIX GIVEN AND DIURESING WELL..
[2018-07-08 20:00] VITALS: BP 109/75
[2018-07-08 20:39] VITALS: BP 109/75
--- NOTE | 2018-07-09 04:28 | NUR ---
PT ALERT BUT CONFUSED, DIFFICULTY TELLING WHERE HE IS, COOPERATIVE THOUGH HE KEEPS ON REMOVING TELE PATCHES OUT, INCONTINENT OF BM, GIVEN PARTIAL SPONGE BATH, TRIED SCDS BUT PT RIPPED THEM OF, USING URINAL AND KEPT URINAL WITHIN REACHED DUE TO SHIFT CHANGE IT WAS NOTED PT WAS URINATING USING THE WATER BOTTLE, KEPT NPO FOR POSSIBLE EGD TODAY, ON OXYGHEN 2 L PER NC, ABLE TO TURN/REPOSITION SELF, HAS MOISTURE ASSOCIATED REDNESS TO COCCYX AND ABD FOLD, CREAM APPLIED, MONITORED.
[2018-07-09 04:46] VITALS: BP 111/72
[2018-07-09 05:35] LABS: HEMATOCRIT 27.6 % (42.0-52.0); HEMOGLOBIN 9.2 gm/dL (14.0-18.0); MCH 33.1 pg (26.0-34.0); MCHC 33.2 g/dL (28.0-37.0); MCV 99.8 fL (80.0-100.0); RBC 2.77 mil/uL (4.50-6.00); RDW 19.3 % (10.5-14.5); WBC 4.9 thou/uL (4.0-11.0)
[2018-07-09 05:52] LABS: CALCIUM 8.4 mg/dL (8.5-10.1); CREATININE 1.4 mg/dL (0.7-1.3); POTASSIUM 4.5 mmol/L (3.5-5.1)
[2018-07-09 07:25] VITALS: BP 113/75
[2018-07-09 11:17] VITALS: BP 105/57
--- NOTE | 2018-07-09 14:54 | NUR ---
Received consult. SW reviewed chart and spoke with nursing. Pt will have EGD tomorrow per GI. SW attempted to meet with pt at bedside. Pt currently working with therapy. ALBERT will follow up with pt/family at a later time to assist as needed with discharge planning.
[2018-07-09 17:07] VITALS: BP 105/68
--- NOTE | 2018-07-09 18:12 | HC ---
[facility] [place] [address] CONSULTATION Name: SNEHAL ABDI Room #: 358-P ADM IN M.R.#: [id number] Admission: 07/06/18 Attend Phys: Chio Snow Discharge: Date of : 36 Report #: [id number] THIS REPORT FOR: //name// CC: Grady Leonard PRIMARY CARE PHYSICIAN: Grayson Mendiola MD REFERRAL PHYSICIAN: Mat Morales MD REASON FOR REFERRAL: Abnormal D-dimer. HISTORY OF PRESENT ILLNESS: The patient is an 82-year-old white male who presented to emergency room with progressive weakness, dyspnea. Since admission, he had undergone workup. This included elevated D-dimer. For that reason, pulmonary consultation was requested. The patient's family notes the patient has been weak for the past week or so. There were concerns for possible slurred speech. Of note, the patient is on Eliquis for atrial fibrillation. The patient otherwise denies any past history of veno-thromboembolic disease. He has been weak for the past few days prior to presentation. He has been admitted since 07/06. He states that for the last few days, he has been sedentary. Otherwise, denies any recent lower extremity edema, chest pain or hemoptysis. PERTINENT LABORATORY DATA: Since admission include creatinine 1.4. The patient is not known to have prior chronic kidney disease. Previous creatinine back in 09/2017 was normal. PAST MEDICAL HISTORY: Includes hypertension, atrial fibrillation, coronary artery disease with history of coronary bypass surgery, history of colon cancer, hypertension, status post permanent pacemaker placement. PAST SURGICAL HISTORY: Status post carpal tunnel surgery, skin room, skin cancer resection in the right cheek, bypass surgery as mentioned above. ALLERGIES: None to medications. CURRENT HOME MEDICATIONS: Omeprazole, aspirin, Coreg, Zestril, iron supplements, calcium, Aldactone, Lipitor, amiodarone. FAMILY HISTORY: Noncontributory. [facility] [address] [place] [address] CONSULTATION Name: SNEHAL ABDI Room #: 358-P [facility] IN [facility]#: [id number] Admission: 07/06/18 Attend Phys: Chio Snow Discharge: Date of : 36 Report #: [id number] SOCIAL HISTORY: Denies any alcohol use. Tobacco history: He has smoked many years ago, but more than 40 years ago. He is . REVIEW OF SYSTEMS: As mentioned above, otherwise 10-point system review is negative. PHYSICAL EXAMINATION: GENERAL: He is awake, alert, appears weak, in no distress. VITAL SIGNS: Temperature is 97.5 degrees Fahrenheit, pulse is 70, respiratory rate is 20, blood pressure 100/69 mmHg, saturation 98%. HEENT: Normocephalic, atraumatic. NECK: Supple, without any lymphadenopathy or thyromegaly. CHEST: Breath sounds are fair due to poor effort. Few scattered crackles in the bases. No wheezes. CARDIOVASCULAR: Irregularly irregular. There are no murmurs or gallop. There is no JVD. There is no carotid bruit. Pulses are 2+/4+ bilaterally. ABDOMEN: Soft, nontender, no organomegaly or masses felt. GENITOURINARY: Deferred. RECTAL: Deferred. EXTREMITIES: There is no edema, cyanosis or clubbing. LABORATORY DATA: Leg Doppler ultrasound was negative for DVT. Chest x-ray shows small lung volume, mildly elevated right hemidiaphragm, cardiomegaly, no obvious infiltrates. CT head shows extensive chronic ischemic infarct, chronic small vessel disease, otherwise no acute findings. D-dimer was 3.7. Electrolytes: Sodium 138, potassium 5.0, chloride 106, CO2 is 21, BUN is 31, creatinine is 1.4. Liver enzymes are mildly elevated. WBC 4700, hemoglobin is 9.8, platelets mildly decreased. Albumin 3.5. Troponin is normal. IMPRESSION: 1. Elevated troponin in this 82-year-old white male. He is on Eliquis for atrial fibrillation. His creatinine is 1.4 on admission. Electrolytes suggest metabolic acidosis. 2. The patient's elevated D-dimer is likely related to renal insufficiency. Although he does have mild risk for developing veno-thromboembolic disease, he is already on anticoagulation. Leg Doppler ultrasound was negative for deep venous thrombosis. Likely, pulmonary embolus is felt to be felt to be low. No further workup is necessary other than to follow the creatinine level. 3. Apparent acute kidney injury. Initial electrolytes suggest a metabolic acidosis. We will need to monitor closely. Consider gentle IV fluid hydration. 4. Elevated total bilirubin of unclear significance. 5. Anemia, normochromic, normocytic. 6. Recent onset of progressive weakness, etiology undetermined. Neurology has been consulted. 7. Possible gastrointestinal bleed. 8. Coronary artery disease with ischemic cardiomyopathy. [facility] [address] [place] [address] CONSULTATION Name: SNEHAL ABDI Room #: 358-P ADM IN M.R.#: [id number] Admission: 07/06/18 Attend Phys: Chio Snow Discharge: Date of : 36 Report #: [id number] 9. Status post permanent pacemaker placement. 10. History of colon cancer. RECOMMENDATIONS AND DISCUSSION: The patient is relatively stable from pulmonary standpoint. I do not feel that elevated D-dimer is of concern for possibility of veno-thromboembolic disease. The patient is already on anticoagulation. Elevated D-dimer is likely a function of renal insufficiency. The patient does have renal insufficiency or metabolic acidosis on admission. It is improving. Suggest gentle hydration, follow renal function closely. The patient's chest x-ray also shows mildly elevated right hemidiaphragm, which may be related to his recent weakness resulting in diaphragmatic weakness. Cause of weakness at this time is undetermined. DVT and GI prophylaxis will be addressed. Thank you for this consultation. <ELECTRONICALLY SIGNED> By: Chuy Carty MD 07/09/18 1812 1743 0127 Chuy Carty MD /nt
[2018-07-09 19:10] VITALS: BP 135/74
--- NOTE | 2018-07-10 02:51 | NUR ---
PATIENT IS PROGRESSING SLOWLY IN HIS CARE PLAN. VITAL SIGNS STABLE WITH PATIENT HAVING NO COMPLAINTS OF PAIN OR NAUSEA. PATIENT NOT FULLY ORIENTED AND PLEASANTLY CONFUSED. HE IS UNABLE TO CALL APPROPRIATELY FOR NEEDS. BREATHING REMAINS STABLE ON OXYGEN PER ORDER EVIDENCED BY SATS IN ACCEPTABLE RANGE. PATIENT DOES PULL OFF MEDICAL EQUIPMENT OFTEN AND REQUIRES FREQUENT OBSERVATION. UP TO BEDSIDE COMMODE WITHOUT INCIDENT, PATIENT IS A HIGH FALL RISK. FREQUENT INCONTINENCE REQUIRING BED CHANGES, PATIENTS SKIN PROTECTED BY BARRIER CREAM APPLICATION AND REMINDING HIM TO TURN. PATIENT DID HAVE SMALL BM THIS SHIFT WITH NO PERCEIVABLE EVIDENCE OF BLEEDING. CONTINUE PLAN OF CARE.
[2018-07-10 04:10] VITALS: BP 111/78
[2018-07-10 04:44] LABS: MCH 33.2 pg (26.0-34.0); MCHC 33.2 g/dL (28.0-37.0); RBC 2.7 mil/uL (4.50-6.00); WBC 4.6 thou/uL (4.0-11.0)
[2018-07-10 05:03] LABS: CREATININE 1.5 mg/dL (0.7-1.3); POTASSIUM 4.3 mmol/L (3.5-5.1)
[2018-07-10 07:18] VITALS: BP 113/71
--- NOTE | 2018-07-10 09:06 | 2DMMODE ---
[facility] [address] [place] [address] 2 D/M-MODE ECHOCARDIOGRAM Name: TRINIDADSNEHAL Chio Room #: 358-P ADM IN ..#: [id number] Admission: 07/06/18 Attend Phys: Grady Waller Discharge: Date of : 37 Date of Service: 07/10/18 0905 Report #: [id number] THIS REPORT FOR: //name// APPROVED REPORT Study performed: 07/10/2018 07:55:52 EXAM: Comprehensive 2D, Doppler, and color-flow Echocardiogram Patient Location: Bedside Room #: [facility] Status: routine BSA: 1.99 HR: 71 bpm BP: 111/78 mmHg Rhythm: Atrial Fibrillation Other Information Study Quality: Adequate Indications ICD: Congestive Heart Failure Atrial Fibrillation Cardiomyopathy Hypertension/HDD 2D Dimensions RVDd: 43.39 mm IVSd: 9.36 (7-11mm) LVOT Diam: 23.78 (18-24mm) LVDd: 57.11 mm PWd: 8.84 (7-11mm) Ascending Ao: 47.17 (22-36mm) LVDs: 51.91 (25-40mm) Aortic Root: 39.32 mm IVC: 23.00 mm Volumes Left Atrial Volume (Systole) Single Plane 4CH: 102.55 mL Single Plane 2CH: 86.09 mL LA ESV Index: 52.00 mL/m2 Aortic Valve AoV Peak Scotty.: 1.38 m/s AO Peak Gr.: 7.59 mmHg LVOT Max P.43 mmHg LVOT Max V: 0.78 m/s MICHELLE Vmax: 2.51 cm2 [facility] [address] [place] [address] 2 D/M-MODE ECHOCARDIOGRAM Name: SNEHAL ABDI Room #: 358-P ADM IN [facility]#: [id number] Admission: 07/06/18 Attend Phys: Grady Waller Discharge: Date of : 37 Date of Service: 07/10/18 0905 Report #: [id number] Pulmonary Valve PV Peak Scotty.: 0.90 m/s PV Peak Gr.: 3.27 mmHg Tricuspid Valve TR Peak Scotty.: 2.66 m/s TR Peak Gr.: 28.46 mmHg PA Pressure: 38.00 mmHg Left Ventricle Left ventricle is at the upper limits of normal. There is severe global hypokinesis of the left ventricle. There is normal left ventricular wall thickness. Left ventricular ejection fraction is severely decreased. LVEF is 20%.discordanant septal motion This study is not technically sufficient to allow evaluation of the LV diastolic function. Right Ventricle Right ventricle is dilated. Right ventricle is hypokinetic. Device lead is present in the right ventricle. Atria Left atrium is dilated. Right atrium is dilated. Device lead is present in the right atrium. Aortic Valve The aortic valve is normal in structure. Aortic valve is calcified. Mild aortic regurgitation. There is no aortic valvular stenosis. Mitral Valve The mitral valve is normal in structure. Moderate mitral regurgitation. No evidence of mitral valve stenosis. Tricuspid Valve The tricuspid valve is normal in structure. There is moderate tricuspid regurgitation. Estimated PAP 38 mmHg. There is mild pulmonary hypertension. Pulmonic Valve The pulmonary valve is normal in structure. Mild pulmonic regurgitation. Great Vessels The aortic root is normal in size. IVC is dilated and collapses <50% with inspiration. [facility] [place] [address] 2 D/M-MODE ECHOCARDIOGRAM Name: SNEHAL ABDI Room #: 358-P ADM IN M.R.#: [id number] Admission: 07/06/18 Attend Phys: Grady Waller Discharge: Date of : 37 Date of Service: 07/10/18 0905 Report #: [id number] Pericardium There is no pericardial effusion. <Conclusion> Left ventricle is at the upper limits of normal. There is severe global hypokinesis of the left ventricle. LVEF is 20%.discordanant septal motion This study is not technically sufficient to allow evaluation of the LV diastolic function. Right ventricle is dilated. Right ventricle is hypokinetic. Left atrium is dilated. Right atrium is dilated. Device lead is present in the right atrium. The aortic valve is normal in structure. Aortic valve is calcified. Mild aortic regurgitation. Moderate mitral regurgitation. There is moderate tricuspid regurgitation. Estimated PAP 38 mmHg. There is mild pulmonary hypertension. The aortic root is normal in size. There is no pericardial effusion. <ELECTRONICALLY SIGNED> By: Jesus Sandy MD, FACC 07/10/18904 4 4 Jesus Sandy MD, FACC /INF
[2018-07-10 11:46] VITALS: BP 102/64
--- NOTE | 2018-07-10 12:38 | NUR ---
ALBERT reviewed chart and spoke with nursing and attending physician. Pt is progressing towards goals for discharge. ALBERT met with pt, and son at bedside. Introduced role of SW. Pt is alert/orientated and [place]. Pt and spouse live at home. Pt is normally independent with ADLS. Pt does have a cane to assist with ambulation. Pt's is w/c bound and requires O2. Pt is normally pt's primary caregiver. Neurologist came in while SW was in room to provide update to pt and family. Recommendation made for neuro for pt to go to [facility] for rehab. Discussion regarding usp discharge plans with pt and about the possibility of moving into an AL facility. Pt and spouse are not ready to make that decision yet. ALBERT explained that some communities have all levels of care available. ALBERT discussed need for insurance authorization in order to go to rehab/SNF. Pt and family's preference is [facility]. SW also provided pt/family with list of in-network SNFs for review. Pt has been to [facility]. Pt and family would prefer a facility in [facility]. ALBERT discussed [facility], [facility] and also [facility]. ALBERT discussed with attending physician. [facility] consult ordered. ALBERT discussed case with [facility] rn rehab. Awaiting input from [facility] at this time. ALBERT is following to assist as needed with discharge planning.
--- NOTE | 2018-07-10 13:55 | NUR ---
ASSUMED CARE AT 1100, SHIFT ASSESSMENT DONE, VSS. SITTING IN THE BED THIS AM. FAMILY IN ROOM. WORKED WITH PHYSICAL THERAPHY AND OCCUPATIONAL THERAPHY. [facility] CONSULT CALLED IN. WILL CONTINUE TO ASSESS AND ASSIST WITH ADLs NEEDED.
[2018-07-10 15:48] VITALS: BP 106/66; BP 110/65; BP 95/56
[2018-07-10 20:41] VITALS: BP 101/57
[2018-07-11 04:16] VITALS: BP 104/64
--- NOTE | 2018-07-11 05:08 | NUR ---
PATIENT IS SLOWLY PROGRESSING IN HIS CARE PLAN. VITAL SIGNS STABLE WITH PATIENT NOT REPORTING, NOR NURSE PERCEIVING, ANY PAIN OR NAUSEA. PATIENT HAS BEEN MORE CONFUSED OVER THIS SHIFT THAN PREVIOUS. PATIENT BECAME UPSET WITH NURSING STAFF BECAUSE WE COULD NOT TELL HIM HOW MUCH HE OWED FOR HOSPITAL STAFF. NORMALLY PLEASANTLY CONFUSED AND REDIRECTABLE PATIENT BECAME IRATE AND ACCUSED STAFF OF "HOLDING HIM HOSTAGE." PATIENT MADE SEVERAL CALLS TO FAMILY [facility] IN THE MORNING AND THIS NURSE HAD LONG TALK WITH PATIENTS AND ASSURED HER THAT WE WOULD KEEP PATIENT SAFE. DOCTOR DOOLEY CONTACTED FOR ANXIETY MEDICATION BUT PATIENT REFUSED. SECURITY CALLED DUE TO PATIENTS INSISTENCE ON BEING ALLOWED TO LEAVE. PATIENT HAD MULTIPLE BOUTS OF URINARY INCONTINENCE AND WAS CLEANED AND SKIN PROTECTED HE WOULD ALLOW.
[2018-07-11 06:18] LABS: HEMATOCRIT 28.5 % (42.0-52.0); HEMOGLOBIN 9.5 gm/dL (14.0-18.0); MCH 33.2 pg (26.0-34.0); MCHC 33.4 g/dL (28.0-37.0); MCV 99.5 fL (80.0-100.0); RBC 2.87 mil/uL (4.50-6.00); RDW 19.7 % (10.5-14.5); WBC 4.5 thou/uL (4.0-11.0)
[2018-07-11 06:30] LABS: CALCIUM 8.4 mg/dL (8.5-10.1); CREATININE 1.7 mg/dL (0.7-1.3); POTASSIUM 3.8 mmol/L (3.5-5.1)
[2018-07-11 07:20] VITALS: BP 101/73
[2018-07-11] MEDS ORDERED: PANTOPRAZOLE SO40 M1 PO (08:02)
[2018-07-11 11:24] VITALS: BP 97/67
--- NOTE | 2018-07-11 12:10 | NUR ---
RECIEVED APPROVAL FROM DR. VAZ TO REQUEST AUTHORIZATION FOR INPATIENT REHAB ADMISSION. PER LIAISON REPORT FROM YESTERDAY, THE LIAISON INSPECTION LABORATORY ASSISTANT FROM [facility] STATED THAT AUTH WOULD NOT BE GRANTED WITHOUT DOCUMENTATION OF THE REHAB MD CONSULTATION AND ALSO MORE DETAILED ACTUAL ACTIVITY EVALUATION FROM OT AND PT. [facility] REP STATED THAT PT WOULD HAVE TO BE SEEN AGAIN BY THERAPIES FRIDAY, AND THAT THE CONSULT WOULD HAVE TO BE "IN" BEFORE THEY WOULD CONSIDER AUTH. THESE THINGS ARE STILL NOT IN PLACE IN THE EMR, AND WE ARE AWAITING THIS BEFORE SEEKING AUTHORIZATION. THE MEDICAL [employer]OR[employer] ON-CALL STAFF HAS BEEN NOTIFIED OF OUR NEED FOR EXPEDITED SHEET METAL WELDER, AND WE HAVE BEEN INFORMED THAT THERE IS A PROBLEM WITH THE [employer] SYSTEM, AND THAT OUR REQUEST WILL BE GIVEN #1 LEVEL PRIORITY. THIS DOCUMENTATION WAS DICTATED YESTERDAY, AND WE ARE AWAITING ITS ARRIVAL TO THE EMR AT THIS TIME. PER THE INSTANTIZER OPERATOR, OT AND PT ARE TO TREAT TODAY BETWEEN 10AM-2PM.
[2018-07-11 16:35] VITALS: BP 110/70
--- NOTE | 2018-07-11 16:39 | NUR ---
ASSUMED PATIENT CARE AT 0700. A/O X4 BUT CONFUSED SOME TIMES. DENIES PAIN. UP WALK WITH WALKER. WAITTING ON INSURANCE TO DC 5N. PROGRESSING TOWARDS POC GOALS.
[2018-07-11 19:34] VITALS: BP 108/71
[2018-07-12 04:48] VITALS: BP 106/59
[2018-07-12 05:39] LABS: HEMATOCRIT 26.8 % (42.0-52.0); HEMOGLOBIN 9.2 gm/dL (14.0-18.0)
[2018-07-12 05:59] LABS: CALCIUM 8.4 mg/dL (8.5-10.1); CREATININE 1.6 mg/dL (0.7-1.3)
--- NOTE | 2018-07-12 07:45 | NUR ---
Pt a/o to self and nurse. Calm, cooperative, follows commands. RA, O2 2L NC PRN. Denies pain or any other discomfort. All fall precaustions maintained. VSS. Will continue to monitor.
--- NOTE | 2018-07-12 08:11 | NUR ---
ALL CLINICAL INFORMATION, WITH THE EXCEPTION OF DR. VAZ'S CONSULT, WHICH IS NOT TRANSCRIBED YET, HAS BEEN FAXED TO THE ON-CALL NURSE FOR [facility]. AWAITING CONSULT TO ARRIVE IN THE EMR STILL. HAVE BEEN ADVISED THAT [facility] WILL NEED THIS. IT WILL BE FAXED TO THEM SOON IT COMES AVAILABLE.
[2018-07-12 08:34] VITALS: BP 105/56
[2018-07-12 16:00] VITALS: BP 94/58
[2018-07-12 19:10] VITALS: BP 108/71
[2018-07-13 04:30] VITALS: BP 110/68
[2018-07-13 05:51] LABS: HEMATOCRIT 28.1 % (42.0-52.0); HEMOGLOBIN 9.3 gm/dL (14.0-18.0)
[2018-07-13 06:00] LABS: CALCIUM 8.5 mg/dL (8.5-10.1); CREATININE 1.8 mg/dL (0.7-1.3); POTASSIUM 4.3 mmol/L (3.5-5.1)
[2018-07-13 07:40] VITALS: BP 115/75
--- NOTE | 2018-07-13 09:10 | NUR ---
PT MAKING PROGRESS TOWARDS GOALS. NO BM OVERNIGHT, NO GI COMPLAINTS VOICED. PT CONFUSED AT NIGHT, FREQUENTLY PULLING OFF OXYGEN, REMOVING GOWN AND YELLING OUT FOR "BETINA". PT ORIENTED X 4 THOUGH WHEN ASKED. NO SIGNS OF BLEEDING.
--- NOTE | 2018-07-13 10:22 | NUR ---
Nutrition: assess d/t LOS. Pt admitted for weakness and SOA. Possible d/c today. Pt was confused and unable to provide wt hx. Pt had breakfast tray, but was not yet eating. Overweight BMI status. Consider low risk.
--- NOTE | 2018-07-13 11:12 | NUR ---
GI IS LOOKING INTO WHETHER AN EGD WILL BE DONE AND IF SO IT WILL BE DONE TOMORROW PT HAS ALREADY EATEN TODAY. 5N IS FOLLOWING AND WILL SEEK AUTH ONCE IT IS DETERMINED IF EGD WILL BE DONE. IF SO THEY WILL LOOK TO SEEK AUTH ONCE IT'T COMPLETED.
--- NOTE | 2018-07-13 15:38 | NUR ---
PT A/O TO PERSON AND PLACE, INT CONFUSION AND FORGETFULNESS. PT TRIES TO DISGUISE HIS CONFUSION AT TIMES WHEN UNABLE TO ANSWER SOME QUESTIONS. PT ON RA AND 1L AT TIMES THIS SHIFT. DID BECOME SOA AND WEAK WHEN TAKEN TO TOILET AND BATHING. PT DID GET UP TO CHAIR TWICE THIS SHIFT. REQUIRED A LOT OF ENCOURAGEMENT FOR PO INTAKE. PT INCONT OF BLADDER. CURRENTLY WAITING TO FIND OUT IF PT IS HAVING AN EGD OR ABLE TO D/C TO 5N. WILL CONT TO MONITOR
[2018-07-13 15:50] VITALS: BP 145/115
[2018-07-13 19:30] VITALS: BP 91/62
[2018-07-14 04:15] VITALS: BP 109/64
--- NOTE | 2018-07-14 05:05 | NUR ---
PT MAKING SLOW PROGRESS TOWARDS GOALS. NO NOTED BLEEDING OVERNIGHT. NO BM BY PT. ON ROOM AIR THROUGHOUT THE NIGHT. NOTED COARSENESS OVER BOTH UPPER LOBES THIS AM. RASPY VOICE AT TIMES THAT CLEARS WITH MILD COUGH. COUGH IN GENERAL HAS NOT BEEN PRODUCTIVE OR HARSH.
[2018-07-14 05:50] LABS: HEMATOCRIT 28.3 % (42.0-52.0); HEMOGLOBIN 9.4 gm/dL (14.0-18.0); MCH 32.7 pg (26.0-34.0); MCHC 33.2 g/dL (28.0-37.0); MCV 98.5 fL (80.0-100.0); RBC 2.88 mil/uL (4.50-6.00); RDW 19.3 % (10.5-14.5); WBC 7.2 thou/uL (4.0-11.0)
[2018-07-14 06:07] LABS: CALCIUM 8.5 mg/dL (8.5-10.1); POTASSIUM 4.5 mmol/L (3.5-5.1)
[2018-07-14 07:58] VITALS: BP 116/76
--- NOTE | 2018-07-14 08:07 | NUR ---
PT MAKING SLOW PROGRES TOWARDS GOALS. UPON INITIAL ASSESSMENT PT ORIENTED ACCURATE TO NAME, , DATE BUT NOT HIS LOCATION OR SITUATION. THIS AM, PT ORIENTED TO NAME, , DATE, LOCATION BUT NOT NECESSARILY HIS SITUATION. OCCASIONALLY HEARD YELLING OUT FOR "BETINA." WOULD ACCEPT REORIENTATION TO BETINA WAS NOT HERE BUT WOULD STILL OCCASIONALLY YELL OUT FOR HER.
--- NOTE | 2018-07-14 08:07 | NUR ---
PER [facility], WE ARE ADVISED NOT TO SEEK AUTH FOR REHAB UNTIL AFTER PT HAS HAD THE EGD. ACCORDING TO PROG NOTES, THE EGD IS PLANNED FOR 07/15/18. WILL FOLLOW.
[2018-07-14 11:43] VITALS: BP 98/60
[2018-07-14 15:58] VITALS: BP 113/76
--- NOTE | 2018-07-14 17:23 | NUR ---
PT ALERT AND ORIENTED TIMES FOUR, WITH PERIODS OF CONFUSION. VSS, VPACED ON TELE. PT DENIES PAIN/SOA. BLADDER SCAN TODAY RESULT OF 200. PT UP TO THE CHAIR TODAY. PT TOLERATES MEDS AND MEALS. FAMILY AT BEDSIDE. PT SLOWLY PROGRESSING TOWRADS POC GOALS.
[2018-07-14 19:27] VITALS: BP 93/51
[2018-07-15] VITALS (7 sets, daily range): BP systolic 82–99; BP diastolic 49–71
[2018-07-15 04:39] LABS: ALBUMIN 3.1 g/dL (3.4-5.0); CALCIUM 8.2 mg/dL (8.5-10.1); CREATININE 2.1 mg/dL (0.7-1.3); PHOSPHORUS 3.9 mg/dL (2.5-4.9); POTASSIUM 4.6 mmol/L (3.5-5.1)
--- NOTE | 2018-07-15 07:32 | NUR ---
SLEPT MOST OF SHIFT. ORIENTED TO PERSON AND PLACE. TAKES O2 OFF AT TIMES. MAINTAIN SAFE ENVIRONMENT. INCONTINENT AT TIMES. ASSIST WITH URINAL PRN. WORKING ON GOALS AND PLAN OF CARE FOR NOC. PROGRESSING TOWARDS DISCHARGE GOALS. PLANS FOR EGD TODAY. CONTINUE TO ASSES.
[2018-07-15 08:17] LABS: URINE COLOR AMBER
[2018-07-15 08:18] LABS: URINE BILIRUBIN NEGATIVE (Negative); URINE BLOOD NEGATIVE (Negative); URINE CLARITY CLEAR; URINE GLUCOSE-RANDOM* NEGATIVE (Negative); URINE KETONES NEGATIVE (Negative); URINE NITRITE-REFLEX NEGATIVE (Negative); URINE PROTEIN (DIPSTICK) NEGATIVE (Negative); URINE SPECIFIC GRAVITY 1.025 (1.005-1.035); URINE UROBILINOGEN 0.2 E.U./dl (0.2-1.0)
[2018-07-15 08:19] LABS: URINE LEUKOCYTES-REFLEX NEGATIVE (Negative)
[2018-07-15 08:20] LABS: PROT/CREAT RATIO 0.2; URINE CREATININE-RANDOM* 203.9 mg/dL
[2018-07-15 09:39] LABS: % SATURATION 5 % (20-39); IRON 16 ug/dL (65-175); TIBC 331 ug/dL (250-450)
--- NOTE | 2018-07-15 11:20 | HC ---
[facility] [place] [address] CONSULTATION Name: SNEHAL ABDI Room #: 358-P ADM IN .R.#: [id number] Admission: 07/06/18 Attend Phys: Chio Snow Discharge: Date of : 36 Report #: [id number] THIS REPORT FOR: //name// CC: Grady Leonard DATE OF SERVICE: 07/14/2018 TYPE OF REPORT: Nephrology consultation. REASON FOR CONSULTATION: Elevating creatinine. HISTORY OF PRESENT ILLNESS: This is a unfortunate chronically ill 82-year-old patient with dementia and failure to thrive, presented with above, had heme-positive stool without active bleeding, has anemia, he has very severe biventricular heart failure and during this hospitalization, has had slowly elevating creatinine. PAST MEDICAL HISTORY: Previous coronary artery bypass, severe biventricular heart failure and previous TIA. He has had previous colon cancer with subtotal colectomy and history of hypertension. MEDICATIONS: At time of admission include omeprazole, aspirin, carvedilol, lisinopril, spironolactone, Lipitor, amiodarone and Eliquis. CURRENT MEDICATIONS: Include atorvastatin, carvedilol, half normal saline and Protonix. The patient has an ICD and defibrillator and I do not believe has ever gone off. He also has a prior history of AVM on GI endoscopy. SOCIAL HISTORY: Denies cigarettes. Lives at home with his in assisted living. REVIEW OF SYSTEMS: GENERAL: Very unreliable as to the patient's dementia. EYES: His vision seems to be reasonably good. ENT: Hearing okay. No mouth sores noted. ENDOCRINE: No diabetes or thyroid disease. RESPIRATORY: Denies pleuritic pain, shortness of breath, cough or hemoptysis. GASTROINTESTINAL: Denies bloody stool or black stool. GENITOURINARY: Denies weak stream or dysuria. NEUROLOGICAL: Obviously confused and slow thinking. MUSCULOSKELETAL: Denies arthritis. PHYSICAL EXAMINATION: [facility] [address] [place] [address] CONSULTATION Name: SNEHAL ABDI Room #: 358-P [facility] IN ..#: [id number] Admission: 07/06/18 Attend Phys: Chio Snow Discharge: Date of : 36 Report #: [id number] GENERAL: Reasonably ill-appearing elderly gentleman, quite comfortable, obviously with substantial degree of cognitive impairment. EYES: Vision is okay. ENT: Hearing okay, swallows okay. Mouth is benign. NECK: Supple. No carotid bruits are heard. CHEST: Shows some scanty crackles at the lung bases. HEART: Irregular. ABDOMEN: Soft and nontender. EXTREMITIES: Show no dependent edema. LABORATORY DATA: Urinalysis done initially very benign. Hemoglobin 9.4. Sodium 134, potassium 4.5, chloride 101, bicarbonate is only 16, creatinine 2 and BUN 58. ASSESSMENT AND PLAN: 1. Elevating creatinine. This appears to be for the most part prerenal in origin related to very poor cardiac function with atrial fibrillation and some anemia as well, which appears to be more chronic than acute. Gentle IV fluids are certainly indicated. I will add some bicarbonate. I do not believe extensive workup is required. He did have a renal sonogram, which was fairly unremarkable. 2. Biventricular heart failure. 3. Chronic anemia with heme-positive stools. 4. Progressive dementia. 5. Implantable cardioverter-defibrillator with pacemaker. 6. History of colon cancer, status post colectomy. <ELECTRONICALLY SIGNED> By: Jesus Burkett MD 07/15/18 1120 1109 0239 Jesus Burkett MD /nt
--- NOTE | 2018-07-15 14:26 | HC ---
[facility] [place] [address] CONSULTATION Name: SNEHAL ABDI Room #: 358-P ADM IN ..#: [id number] Admission: 07/06/18 Attend Phys: Chio Snow Discharge: Date of : 36 Report #: [id number] THIS REPORT FOR: //name// CC: Grady Leonard DATE OF SERVICE: 07/08/2018 CARDIOLOGY CONSULTATION INDICATION: Dyspnea. HISTORY OF PRESENT ILLNESS: This is an 82-year-old gentleman presenting with weakness, headache, confusion and dyspnea. The patient has a prior history of CABG, ischemic cardiomyopathy, ICD, anemia, TIA/CVA, paroxysmal atrial fibrillation, presenting with the above complaints. The patient resides in a shelter community, with his . It seems that he developed generalized weakness and inability to ambulate. This was associated with a headache, problems with his speech and right-sided facial droop. During the initial evaluation, he was noted to be anemic with guaiac positive stools. He was scheduled to undergo a GI evaluation today, but appeared to have more dyspnea than the previous day. Interestingly, the hemoglobin has increased from the day before and this is not an acute event. He did have some atypical stomach pains, none at this time. He denies any fever, nausea or diarrhea. PAST MEDICAL HISTORY: CABG in 1992, history of heart block with ICD, history of ischemic cardiomyopathy, CVA, hypertension, hypercholesterolemia, PAF, general debility, uses a cane for assistance with ambulation. Had a TIA in 09/2017, had been off aspirin and Eliquis prior to undergoing carpal tunnel surgery. Cardiac catheterization in 2018 revealed a patent REDDY graft to the LAD with collateral filling of the PDA. There is an occlusion in OM1, unable to angioplasty secondary to inability to dilate with a balloon due to excessive calcification. ALLERGIES: None. MEDICATIONS: At home include omeprazole twice a day, aspirin once a day, Coreg 6.25 b.i.d., lisinopril 10 mg, spironolactone, Lipitor 40 mg, amiodarone 100 mg daily, and Eliquis 5 mg b.i.d. SOCIAL HISTORY: Negative for tobacco use. FAMILY HISTORY: Negative for premature CAD. REVIEW OF SYSTEMS: A full 10-point review of systems performed. Only the pertinent positives and negatives are described in the HPI. [address] [address] CONSULTATION Name: SNEHAL ABDI Room #: 358-P [facility] IN ..#: [id number] Admission: 07/06/18 Attend Phys: Chio Snow Discharge: Date of : 36 Report #: [id number] PHYSICAL EXAMINATION: VITAL SIGNS: Blood pressure is 113/60, heart rate is 70 beats per minute. GENERAL APPEARANCE: This is an elderly appearing male, in no acute distress. HEENT: Normocephalic. Sclerae anicteric. Oral mucosa moist. NECK: Supple. LUNGS: Few crackles at the left base. CARDIAC: Regular rate and rhythm, S1 and S2 positive. ABDOMEN: Soft, nontender. EXTREMITIES: No cyanosis, no edema. ECG reveals atrial sensed, ventricular paced rhythm. LABORATORY VALUES: D-dimer is elevated at 3.74. Sodium is 138, creatinine is 1.4. White count 4.7, hemoglobin on the 25th is 8.7, today is 9.8. ASSESSMENT AND PLAN: 1. Dyspnea on exertion. The patient has a prior history of ischemic cardiomyopathy. He has a few crackles at the left base, which may be related to atelectasis. He does not have significant fluid overload. However, given his history of ischemic cardiomyopathy, we will start the patient on the low dose diuretic. He will also require a pulmonary evaluation. 2. Weakness, difficulty with speech, (?) facial droop. Agree with neuro evaluation. He has a history of cerebrovascular accident and transient ischemic attack. Continue with Eliquis at this time. 3. Coronary artery disease/coronary artery bypass graft, stable with no overt symptoms of exertional angina. Continue with low dose aspirin. Continue on the beta carmela. 4. Gastrointestinal, positive guaiac stools, hemoglobin stable at this time. He did have a full workup 2 years ago that was unremarkable. As per GI. 5. Hypertension, continue with medications. 6. Implantable cardioverter defibrillator, will need an implantable cardioverter defibrillator interrogation. <ELECTRONICALLY SIGNED> By: Mat Morales MD 07/15/18 1426 1316 2121 Mat Morales MD /nt
--- NOTE | 2018-07-15 16:17 | NUR ---
PT IS PROGRESSING TOWARD POC GOALS. PT WAS TO HAVE EGD THIS MORNING, BUT FAMILY DECIDED AGAINST THE PROCEDURE SO PT'S REGULAR DIET WAS RESUMED. PT REMAINS ON 3L 02 VIA NC, AND HAS COARSE BREATH SOUNDS WITH NPC. PT REQUIRES X2 MAX ASSISTANCE WITH TRANSFERS AND AMBULATION. PT IS SLOW TO FOLLOW COMMANDS WITH PERIODIC CHANGES IN ORIENTATION. AWAITING AUTHORIZATION FOR DISCHARGE TO 5N PER CASE MANAGEMENT. PT HAS NO C/O OF PAIN OR DISCOMFORT THIS SHIFT. PT IS RESTING COMFORTABLY AT THIS TIME, CALL LIGHT WITHIN REACH.
--- NOTE | 2018-07-15 16:27 | NUR ---
AWAITING DETERMINATION FROM INSURANCE REGARDING ADMISSION TO 5N. CM FOLLOWING.
--- NOTE | 2018-07-15 16:47 | NUR ---
on-going assessment: CM SAW PATIENTS ON THIS AM AND DISCUSSED DISCHARGE PLAN. EGD WAS CANCELED. CM SPOKE WITH [employer] WHO STATES THEY HAVE SUBMITTED FOR INSURANCE AUTH. STILL WAITING TO HEAR BACK FROM INSURANCE TO SEE IF 5N WILL BE APPROVED. CM LEFT VM WITH SON. CM WILL CONTINUE TO FOLLOW TO ASSIST NEEDED.
[2018-07-16] VITALS (7 sets, daily range): BP systolic 87–115; BP diastolic 56–67
[2018-07-16 05:28] LABS: HEMATOCRIT 26.6 % (42.0-52.0)
[2018-07-16 05:46] LABS: ALBUMIN 2.9 g/dL (3.4-5.0); CALCIUM 8.3 mg/dL (8.5-10.1); CREATININE 1.8 mg/dL (0.7-1.3); PHOSPHORUS 3.7 mg/dL (2.5-4.9); POTASSIUM 4.1 mmol/L (3.5-5.1)
--- NOTE | 2018-07-16 07:26 | NUR ---
Pt. slept intermittently during the night. He has been repositioned. O2 at 3L/NC , he occasionally takes O2 off but kept it on most of the night. Loose cough but not coughing out anything. Initial BP at HS while sound asleep 87/60. Rechecked and got 93/58. This am FILM PROCESS OPERATOR took BP while sound asleep and got 87/60. Rechecked BP and got 110/60. V paced per tele. Pt. has not voided all night since straight cathed around 1829 yesterday by day shift RN. Offered urinal but didn't have to go. Bladder scanned and reads 250 ml. Report given to day RN.
--- NOTE | 2018-07-16 09:41 | HC ---
[facility] [place] [address] CONSULTATION Name: SNEHAL ABDI Room #: 358-P ADM IN .R.#: [id number] Admission: 07/06/18 Attend Phys: Chio Snow Discharge: Date of : 36 Report #: [id number] THIS REPORT FOR: //name// CC: Grady Leonard DATE OF SERVICE: 07/08/2018 HISTORY OF PRESENT ILLNESS: This is an 82-year-old male patient who was evaluated by me for any neurological etiology for the patient's dizziness. I reviewed this patient's record and reviewed the patient's prior records. The patient lives with his . His son saw him on and noticed his speech was slurred. It has fluctuated, but has become somewhat better. He also noted that there may have been some ptosis at one time. He was pretty fatigued. He became short of breath. Short of breath is about 2 weeks' duration. He indicates he is still dizzy. He is dizzy whether he is lying down or standing up or sitting down. He has multiple other issues. He apparently became agitated and had hallucination at one time. He has cardiology problems in the past and his ejection fraction is only 30%. He has a history of colon cancer and he has a GI bleed, although the hemoglobin is stable and actually is 9.8 today. Review of the record indicates that the patient was seen by me in September. He had some aggravation of his neurological deficit that time, but he became better. 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 This patient has a pacemaker as well as a defibrillator according to the patient. CT scan was done and indicates that there is an extensive chronic disease in this patient. REVIEW OF SYSTEMS: Indicate that is positive as described above. He indicates he has both pacemaker and defibrillator, but I need to confirm that because history mainly mention pacemaker. He has a history of atrial fibrillation and has been on chronic anticoagulation. Does have a history of ischemic heart disease and colon cancer. He has a history of GI bleed. He had carpal tunnel syndrome surgery in the past and that time also his anticoagulation was held. He has shortness of breath, which is about 2 weeks' duration. He has this dizziness and speech difficulty. He is being followed by Pulmonary as well as Cardiology. He denies any new eyes or ENT symptoms, does not have much constitutional, dermatological, psychiatric symptom which is new. His platelet count is low. Denies any throat symptom. He has no allergy. PAST MEDICAL HISTORY: Does appear to be positive for the fact that his symptom does become worse when his body is under stress. FAMILY HISTORY: Negative for any early age stroke. [facility] [address] [place] [address] CONSULTATION Name: SNEHAL ABDI Chio Room #: 358-P [facility] IN .R.#: [id number] Admission: 07/06/18 Attend Phys: Chio Snow Discharge: Date of : 36 Report #: [id number] SOCIAL HISTORY: Lives with his who also is in wheelchair. PHYSICAL EXAMINATION: Indicate that he is alert. He is responsive. He can follow simple command, but his memory is poor. I do not know what his baseline is. He was not actively hallucinating. Cranial nerve examination 2-12 looks unremarkable. I do not see much nystagmus there. He moves all four extremities and appears to be moving symmetrically. His position sense looks unremarkable. His reflexes in general are diminished, but symmetrically. His tone looks unremarkable. He has cerebellar signs. I could not look at the patient's fundus. He does have a history of atrial fibrillation. He does appear to be somewhat short of breath. His blood pressure is 113/67, respirations 16, pulse is 71, temperature is 95.7. LABORATORY DATA: His hemoglobin is 9.0. His GFR is 49 and his creatinine is 1.4. CT scan demonstrated extensive chronic changes, but no acute changes. He did have a carotid Doppler in September and that was unremarkable. IMPRESSION: Dizziness. I do not believe this dizziness is neurological, although I cannot exclude that. It is more likely it is going to be systemic because he has such extensive baseline cardiac and now respiratory problem for a couple of weeks. Since he is not on anticoagulation at the moment, he is predisposed to have stroke. I am not sure what his baseline cognition is. I suspect it is impaired and it becomes decompensated when he is in the hospital. RECOMMENDATIONS: 1. Workup is very difficult. Because the best I can tell, he cannot have an MRI, but we will check with Cardiology. 2. Doing CT angio is somewhat difficult with a GFR of 49, but it can be done if we have to do with some attendant risk. I am not sure it is going to show anything which will change the treatment at this stage, especially if we can put him back on anticoagulation. 3. I will get an EEG done. 4. Part of it may be hospital psychosis and I will suggest psychiatric consult if hallucinations continue. 5. If family is agreeable, I will suggest a formal neuropsychological testing by Dr. Zapata to decide what kind of living arrangement will be appropriate for him. 2. I do not think we need to repeat the carotid Doppler at this stage. 3. I will discuss this patient with you and decide about the further plan and we will also try to talk to Cardiology to see if he has a defibrillator and a pacemaker or just a pacemaker and if just pacemaker, if that is compatible with MRI. [facility] [address] [place] [address] CONSULTATION Name: SNEHAL ABDI Chio Room #: 358-P ADM IN M.R.#: [id number] Admission: 07/06/18 Attend Phys: Chio Snow Discharge: Date of : 36 Report #: [id number] Thank you very much for this referral. <ELECTRONICALLY SIGNED> By: Grant Munson MD 07/16/18 0941 1643 0045 Grant Munson MD /nt
--- NOTE | 2018-07-16 09:42 | EEG ---
[facility] [place] [address] [place] [address] ELECTROENCEPHALOGRAM Name: SNEHAL ABDI Room #: 358-P ADM IN M.R.#: [id number] Admission: 07/06/18 Attend Phys: Grady Mendiola, Discharge: Date of : 36 Report #: [id number] THIS REPORT FOR: //name// CC: Grady Leonard DATE OF SERVICE: 07/09/2018 This patient is being evaluated for dizziness. EEG was done by placing the electrodes by standard 10-20 system of electrode placement. Both referential and sequential montages were used for recording. Background activity in this patient is about 7-8 Hz and 40 microvolt. The patient went to sleep that is associated with bilateral slowing and vertex sharp waves. Photic stimulation was unremarkable. Throughout the record, no active epileptiform activity was noticed. IMPRESSION: This EEG demonstrates moderate amount of slowing on both sides, which is intermixed with the background activity. That is a nonspecific finding, which can occur with dementia, encephalopathy, effect of psychotropic medication, etc. Clinical correlation is recommended. <ELECTRONICALLY SIGNED> By: Grant Munson MD 07/16/18 0942 1023 1221 Grant Munson MD /nt
--- NOTE | 2018-07-16 13:54 | NUR ---
CM CALLED PT'S SON EVA AT 1354 THIS AFTERNOON AND INDICATED THAT DR. DOOLEY INDICATED NO DC TODAY B/C OF PNA AND INCREASED O2 NEED UP TO 3L. CM INDICATED THAT PLAN IS STILL TO SEEK AUTH FROM INSURANCE FOR 5N ONCE PT IS MEDICALLY STABLE. SON IS AWARE AND AGREEABLE. CM TO FOLLOW INDICATED WITH DC PLANNING.
--- NOTE | 2018-07-16 17:57 | NUR ---
RECEIVED NOTIFICATION THIS DATE FROM [employer] EQUIPMENT INSTALLER, THAT DR. DOOLEY DOES NOT FEEL THAT PATIENT IS READY TO DISCHARGE TODAY DUE TO PNA AND INCREASED O2 NEEDS. LIAISON FOR ACUTE REHAB SPOKE WITH GERSON AT [facility] TO UPDATE REGARDING AUTH. GERSON WILL CLOSE CURRENT AUTH REQUEST AND NEW AUTH REQUEST WILL BE INITIATED WHEN PATIENT IS MEDICALLY STABLE FOR ACUTE REHAB. LIAISON WILL CONTINUE TO FOLLOW. THANK YOU FOR THIS REFERAL.
--- NOTE | 2018-07-17 03:20 | NUR ---
pt presents with a flat affect,alert and oriented x 2, needs one person assist with adls.pt has intermittent productive cough,denies pain,on oxygen at 3l/nc.reports lasm bm 07/15/18. needs one person assist with adls ,hob elevated for easier breathing. follows simple commanda ,uses urinal.
[2018-07-17 04:40] VITALS: BP 96/63
--- NOTE | 2018-07-17 05:21 | NUR ---
bladder scan shows a residual of 309cc ,straight cath done with a resulting output of 210cc.
[2018-07-17 05:40] LABS: HEMATOCRIT 27.3 % (42.0-52.0); MCH 32.4 pg (26.0-34.0); MCHC 33.1 g/dL (28.0-37.0); MCV 97.8 fL (80.0-100.0); RBC 2.79 mil/uL (4.50-6.00); RDW 19.4 % (10.5-14.5); WBC 7.8 thou/uL (4.0-11.0)
[2018-07-17 05:46] LABS: ALBUMIN 2.8 g/dL (3.4-5.0); CALCIUM 8.4 mg/dL (8.5-10.1); CREATININE 1.7 mg/dL (0.7-1.3); PHOSPHORUS 3.6 mg/dL (2.5-4.9); POTASSIUM 4.1 mmol/L (3.5-5.1)
[2018-07-17 07:26] VITALS: BP 96/66
[2018-07-17 10:50] VITALS: BP 95/57
[2018-07-17 16:07] VITALS: BP 92/55
--- NOTE | 2018-07-17 18:32 | NUR ---
PATIENT CONT TO BE QUITE CONFUSED TODAY. TOLD NURSE HE WANTED TO GO HOME FOR 24HRS THEN COMEBACK TOMORROW. HE HAS NOT EATING MUCH TODAY. NOTED TO BE COUGHING WHILE DRINKINGL. SPEECH CONSULTED BUT NO FUTHER TREATMENT NOTED AT THIS TIME. RESPIRATIONS ARE LABORED WITH EXERTION. CONT ON ABT FOR PNE. WILL CONT WITH PLAN OF CARE.
[2018-07-18] VITALS (7 sets, daily range): BP systolic 80–99; BP diastolic 48–63
[2018-07-18 05:41] LABS: ALBUMIN 2.7 g/dL (3.4-5.0); CALCIUM 8.3 mg/dL (8.5-10.1); CREATININE 1.7 mg/dL (0.7-1.3); PHOSPHORUS 3.5 mg/dL (2.5-4.9); POTASSIUM 3.9 mmol/L (3.5-5.1)
--- NOTE | 2018-07-18 06:54 | NUR ---
PT IS GETTING MORE CONFUSED SINCE ADMISSION. PT PULLS AT TELE LEADS. HAD TO REPLACE THEM 5X THROUGH SHIFT. HAD TO REDRESS IV SITE PT PULLS AT TRANSPARTENT DRESSING. TRIED TO REDIRECT WITH RESPIRATORY FLUDDER TO GIVE PATIENT SOMETHING TO DO WITH HIS HANDS. PT BREATHING SOUNDS ARE ROUGH. HOURLY ROUNDING.
--- NOTE | 2018-07-18 19:22 | NUR ---
PT CONFUSED ALERT TO SELF THIS SHIFT. VSS, 97%2L, VPACED ON TELE. PT TOLERATED MEDS. POOR APPETITE TODAY. PT C/O PAIN TYLENOL ORDRED AND GIVEN WITH GOOD RELEIF. PT WORKED FAIR WITH PHYSICAL THERAPY UNABLE TO SIT IN THE CHAIR TODAY. FAMILY AT BESIDE. WILL CONTINUE TO MONITOR.
--- NOTE | 2018-07-19 05:07 | NUR ---
FOLLOWING PLAN OF CARE WITH IV ANTIBIOTICS. PT WAS STATING AT THE BEGINNING OF SHIFT HE WANTED TO LEAVE AND HE CALLED HIS SON. I SPOKE TO EVA(SON) AND HE SAID IF NEEDED HE WOULD COME UP AND STAY. SON ALSO STATES HIS DAD SHOULD NOT HAVE HIS CELL PHONE DUE TO CALLING PEOPLE AT ALL HOURS. DURING HOURLY ROUNDING WOULD REDIRECT PT TO OTHER IDEAS WHAT IS ON TV. PT HAS LEFT TELE LEADS ON DURING THE SHIFT.
[2018-07-19 05:16] VITALS: BP 89/60
[2018-07-19 06:41] LABS: ALBUMIN 2.7 g/dL (3.4-5.0); CALCIUM 8.1 mg/dL (8.5-10.1); CREATININE 1.8 mg/dL (0.7-1.3); PHOSPHORUS 3.6 mg/dL (2.5-4.9); POTASSIUM 3.6 mmol/L (3.5-5.1)
[2018-07-19 07:26] VITALS: BP 97/62
[2018-07-19 11:09] VITALS: BP 100/61
--- NOTE | 2018-07-19 14:53 | NUR ---
PT ALERT AND ORIENTED TIMES THREE WITH PERIODS OF CONFUSION. VSS, 93%RA, VPACED ON THE TELE. C/O PAIN IN LOWER LEGS PRN PAIN MEDICATIONS GIVEN WITH GOOD RELEIF. PT TOLERATES MEDS AND MEALS. FAMILY AT BEDSIDE THIS SHIFT. PT SLOWLY PROGRESSING TOWRADS POC GOALS.
[2018-07-19 16:29] VITALS: BP 85/49
[2018-07-19 19:20] VITALS: BP 86/50
[2018-07-20 04:41] LABS: ALBUMIN 2.4 g/dL (3.4-5.0); CALCIUM 7.9 mg/dL (8.5-10.1); CREATININE 1.8 mg/dL (0.7-1.3); PHOSPHORUS 3.3 mg/dL (2.5-4.9); POTASSIUM 3.5 mmol/L (3.5-5.1)
[2018-07-20 04:45] VITALS: BP 100/59
--- NOTE | 2018-07-20 04:58 | NUR ---
Patient making slow progress towards outcome goals. Oxygenation optimal with 3L/NC. Patient has no energy and appetite. Vital signs and Rhythm stable. Fall precautions in place.
[2018-07-20 07:50] VITALS: BP 90/57
[2018-07-20 11:47] VITALS: BP 80/54
[2018-07-20 13:53] VITALS: BP 91/56
[2018-07-20 16:41] VITALS: BP 91/60
--- NOTE | 2018-07-20 17:51 | NUR ---
ASSUMED PATIENT CARE AT 0700. ALERT TO SELF. GENERLIZED WEAKNESS. POOR APPETITE. SMALL BM NO BLEEDING NOTED. NOT TOWARDS TO POC GOALS.
[2018-07-20 19:10] VITALS: BP 90/56
--- NOTE | 2018-07-20 22:44 | NUR ---
OF PT CALLED AND IS WORRIED PT IS NOT EATING AND IS REFUSING TO EAT OR DRINK. SAID THE PT ONLY DRANK A COKE YESTERDAY. I TOOK PT FOOD TRAY TO [facility]. PT ONLY ATE A FEW BITES OF HIS MAIN ENTREE. CONSULTED DIETARY IN EFFORTS TO SEE IF HE WILL TAKE SUPPLEMENTS.
--- NOTE | 2018-07-21 03:07 | NUR ---
FOLLOWING POC WITH [facility]TIBIOT[facility]. CALLED PHARMACY TO ASK ABOUT NEXT ELIZA GILELVIRA. WILL NEED TO WATCH AM LABS TO SEE IF CREAT IS OUT OF NORMAL LIMITS. LAST TROUGH WAS 18. PT BREATHING SOUNDS ARE STILL JUNKY. PT STATES NO PAIN OR N/V. VSS. HAVE REPLACED PATIENTS NC MULTIPLE TIMES OVER THE SHIFT. HOURLY ROUNDING.
[2018-07-21 04:24] LABS: HEMOGLOBIN 9.5 gm/dL (14.0-18.0); MCH 33.5 pg (26.0-34.0); MCHC 33.9 g/dL (28.0-37.0); MCV 98.8 fL (80.0-100.0); RBC 2.83 mil/uL (4.50-6.00); RDW 19.2 % (10.5-14.5); WBC 7.4 thou/uL (4.0-11.0)
[2018-07-21 04:26] LABS: CALCIUM 8.2 mg/dL (8.5-10.1); CREATININE 1.8 mg/dL (0.7-1.3); POTASSIUM 3.3 mmol/L (3.5-5.1)
[2018-07-21 04:50] VITALS: BP 90/55
[2018-07-21 08:08] VITALS: BP 80/54
[2018-07-21 11:57] VITALS: BP 96/43
--- NOTE | 2018-07-21 14:50 | NUR ---
ON-GOING ASSESSMENT: CM WAS INFORMED FROM Porter LIRIANO THAT INSURANCE DENIED 5N ACUTE REHAB. A PEER TO PEER WAS AVAILABLE IF ATTENDING WANTED TO PURSUE. CM NOTIFIED ATTENDING AND HE STATES PATIENT SHOULD GO TO SNF. CM DISCUSSED WITH [facility] SON AND THEY ARE HOPING PATIENT COULD GO TO [facility]. [facility] CURRENTLY DOES NOT HAVE BEDS AVAILABLE. CM DISCUSSED WITH SON ABOUT POSSIBLE OPTION OF PATIENT GOING OT [facility] UNTIL A BED IS AVAILABLE AT [facility] SINCE [facility] IS [facility]. SON WAS AGREEABLE WITH PLAN. CM SPOKE WITH HERI DAN AT [facility] AND FAXED REFERRAL FOR THEM TO REVIEW. SY STATING IF THEY MEDICALLY CAN ACCEPT THE PATIENT AND PENDING INSURANCE AUTH THEN THEY COULD TAKE PATIENT WITH THE PLAN OF TRANSFERING TO [facility] ONCE BED IS AVAILABLE SINCE IT IS CLOSE ENOUGH FOR TO VISIT THERE. CM WILL CONTINUE TO FOLLOW. [facility] CURRENTLY REVIEWING.
[2018-07-21 15:23] VITALS: BP 99/63
--- NOTE | 2018-07-21 15:45 | NUR ---
DECISION RECEIVED FROM [facility] REGARDING AUTHORIZATION FOR ACUTE REHAB. [facility]. PEER TO PEER MUST BE SCHEDULED BEFORE 4:30 TODAY. # TO CALL IS [phone] TO SCHEDULE. STUDIO SET UP WORKER INFORMED.
--- NOTE | 2018-07-21 16:31 | NUR ---
PT ASSESSED AT START OF SHIFT. ORIENTED AND COOPERATIVE W/ CARES. NEEDS ASSIST W/ MEAL TRAY BUT WILL FEED SELF. ATE FAIRLY WELL TODAY. FAMILY SUPRISED AND HAPPY. URINE VERY DARK THIS AM AND NOW CLEAR,YELLOW. DRINKING FLUIDS WELL. SPEECH DISCUSSED DOING VIDEO TOMORROW TOMORROW AFTER NOTICING SOME COUGHING AFTER FLUIDS. LT ARM W/ SOME SWELLING AROUND ELBOW AREA. ULTRASOUND ORDERED TO CHECK FOR CLOT AND WILL BE DONE THIS AFTERNOON. WORKING ON PLACEMENT IN REHAB.
[2018-07-21 19:45] VITALS: BP 91/48
[2018-07-22 00:18] VITALS: BP 93/54
--- NOTE | 2018-07-22 03:37 | NUR ---
ASSUMED PT CARE AROUND 1900. PT IS ABLE TO ANSWER MOST ORIENTAITON QUESTIONS BUT IS FORGETFUL. DENIES ANY PAIN. SOA W/ EXERTION. O2 SATS STABLE ON 2LNC. RT ATTEMPTED TO TITRATED PT OFF O2 BUT HE BECAME SLIGHTLY SOA AND O2 SATS DROPPED TO 87-90% ON RA. PLACED BACK ON 2L NC. REPOSITIONED TO PREVENT SKIN BREAKDOWN. EXTREMITIES ELEVATED ON PILLOWS TO HELP REDUCE SWELLING. PT SLEPT OFF AND ON DURING NIGHT. NOT PROGRESSING WELL TOWARD POC GOALS. WILL CONTINUE TO MONITOR FURTHER.
[2018-07-22 04:12] LABS: CALCIUM 8.3 mg/dL (8.5-10.1); CREATININE 2.1 mg/dL (0.7-1.3); POTASSIUM 4.2 mmol/L (3.5-5.1)
[2018-07-22 04:32] VITALS: BP 89/54
[2018-07-22 06:12] VITALS: BP 100/61
--- NOTE | 2018-07-22 06:37 | NUR ---
PT NOTED TO HAVE LOW UO AND HAVING MORE WET LUNGS SOUNDS THIS AM. BP SOFT. NOTIFIED DR BARNHART. OK TO GIVE SCHEDULED AM DOSE OF TORSEMIDE EARLY PER DR BARNHART. WILL UPDATED ONCOMING NURSE.
[2018-07-22 07:35] VITALS: BP 98/63
--- NOTE | 2018-07-22 10:19 | NUR ---
on-going assessment: EDNA REVIEWED CHART AND SPOKE WITH LIASON FROM [facility] WHO STATES THEY RECEIVED INSURANCE AUTH TO ACCEPT PATIENT TO [facility] TODAY. PLAN IS FOR PATIENT TO GO TO [facility] AND THEN TRANSFER TO [facility] AFTER 5 DAYS SINCE THAT IS CLOSER TO PATIENTS AND THEY DO NOT CURRENTLY HAVE A BED AVAILABLE. EDNA SPOKE WITH DALJIT AT [facility] AND SHE STATES SHE IS READY TO ACCEPT PATIENT AFTER [facility]. CM DISCUSSED WITH PATIENT AND HIS WELL PATIENT SON EVA TO NOTIFY OF DISCHARGE TODAY. CHART COPY IS ORDERED. TRANSPORATION IS ARRANGED FOR 1400.
[2018-07-22 11:25] VITALS: BP 87/93
[2018-07-22] MEDS ORDERED: MUCINEX600 MG PO (13:34)
[2018-07-22] MEDS ORDERED: ACIDOPHILUS1 EAC4 PO (13:34)
[2018-07-22] MEDS ORDERED: DEMADEX20 MG PO (13:34)
[2018-07-22] MEDS ORDERED: IRON325 PO (13:34)
[2018-07-22] MEDS ORDERED: AUGMENTIN 500-1 EACH PO (13:34)
[2018-07-22] MEDS ORDERED: PANTOPRAZOLE SO40 M1 PO (13:34)
--- NOTE | 2018-07-22 13:50 | NUR ---
patient will now be picked up between 4 and 5 pm today. ashli told Nurse Lisa on 3w and she will tell patient's family.Once orders are in dp will fax to facility [facility] [place].
[2018-07-22 16:04] VITALS: BP 93/56
--- NOTE | 2018-07-22 16:17 | NUR ---
iv access dc'd. tele removed. report called to [facility] @ [phone]. Dr. Hummel request the vo remain as pt is transferred to [facility]. family members aware of transport to [facility] bw [phone] today.
--- NOTE | 2018-07-22 18:16 | NUR ---
change in pt's transportation mode to [place], originally a wc per cm, but family uncomfortable w/ that mode of travel so stretcher van called for. pt left w/ x2 males on stretcher to [place], family took pt's belongings and will meet him at the facility.
== END 2018-07-22 18:20 | DRG 377 ==
LOC: ER 20:32 → EROBS 23:31 → 3W 23:31
PROVIDERS: Anesthesiology; Hospitalist; Internal Medicine Gastroenterology; Internal Medicine Geriatric Medicine; Internal Medicine Nephrology; Student in an Organized Health Care Education/Training Program; ADMIT Internal Medicine
PROC: 4B02XTZ Measurement of Cardiac Defibrillator, External Approach (ICD-10-PCS; principal; 2018-07-15)
DX: K92.2 Gastrointestinal hemorrhage, unspecified (principal); J18.9 Pneumonia, unspecified organism; E43 Unspecified severe protein-calorie malnutrition; G93.41 Metabolic encephalopathy; N17.9 Acute kidney failure, unspecified; E87.2 Acidosis; I13.0 Hypertensive heart and chronic kidney disease with heart failure and stage 1 through stage 4 chronic kidney disease, or unspecified chronic kidney disease; I50.20 Unspecified systolic (congestive) heart failure; I25.10 Atherosclerotic heart disease of native coronary artery without angina pectoris; I25.5 Ischemic cardiomyopathy; E78.00 Pure hypercholesterolemia, unspecified; I08.1 Rheumatic disorders of both mitral and tricuspid valves; E86.0 Dehydration; I95.1 Orthostatic hypotension; N18.9 Chronic kidney disease, unspecified; M19.90 Unspecified osteoarthritis, unspecified site; R26.9 Unspecified abnormalities of gait and mobility; D50.0 Iron deficiency anemia secondary to blood loss (chronic); E87.6 Hypokalemia; R33.9 Retention of urine, unspecified; I48.0 Paroxysmal atrial fibrillation; F03.90 Unspecified dementia, unspecified severity, without behavioral disturbance, psychotic disturbance, mood disturbance, and anxiety; R62.7 Adult failure to thrive; I50.82 Biventricular heart failure; I25.2 Old myocardial infarction; Z86.73 Personal history of transient ischemic attack (TIA), and cerebral infarction without residual deficits; Z85.038 Personal history of other malignant neoplasm of large intestine; Z95.1 Presence of aortocoronary bypass graft; Z85.828 Personal history of other malignant neoplasm of skin; Z95.810 Presence of automatic (implantable) cardiac defibrillator; Z79.01 Long term (current) use of anticoagulants; Z79.82 Long term (current) use of aspirin; Z79.899 Other long term (current) drug therapy
CPT/HCPCS: 10879